=== PATIENT | female | born 1990 | race Caucasian/White ===

== ENCOUNTER 2016-12-17 19:31 | Emergency (ER) | payer BC ==
--- NOTE | 2016-12-17 21:19 | EDM.PDOC ---
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 nt. no dc, no cmt. sscw miscarriage. fu ob - Related Data Allergies Allergy/AdvReac Type Severity Reaction Status Date / Time No Known Allergies Allergy Verified 12/17/16 20:00 Home Meds: Home Meds . [No Known Home Meds] 12/17/16 [History] Course - Vital Signs Last Recorded V/S: Last Vital Signs Temp 36.8 C 12/17/16 23:10 Pulse 92 12/17/16 23:10 Resp 20 12/17/16 23:10 BP 166/92 H 12/17/16 23:10 Pulse Ox 97 12/17/16 23:10 - Orders/Labs/Meds Orders: Active Orders 24 hr Category Date Time Status OB 1st Tri Sgl 1st Gest [US] Stat Exams 12/17/16 20:40 Taken CULTURE URINE [] Stat Lab 12/17/16 22:30 Received Labs: Laboratory Tests 12/17/16 12/17/16 12/17/16 Range/Units 20:52 20:52 20:52 WBC 13.11 H (4.0-11.0) K/uL RBC 4.30 (4.30-5.90) M/uL Hgb 12.1 (12.0-16.0) g/dL Hct 37.0 (36.0-46.0) % MCV 86.0 (80.0-98.0) fL MCH 28.1 (27.0-32.0) pg MCHC 32.7 (31.0-37.0) g/dL RDW Std Deviation 50.4 (28.0-62.0) fl RDW Coeff of Sara 16 H (11.0-15.0) % Plt Count 240 (150-400) K/uL MPV 11.60 (7.40-12.00) fL Neut % (Auto) 61.4 (48.0-80.0) % Lymph % (Auto) 29.4 (16.0-40.0) % [place] % (Auto) 7.6 (0.0-15.0) % Eos % (Auto) 1.2 (0.0-7.0) % Baso % (Auto) 0.4 (0.0-1.5) % Neut # (Auto) 8.0 H (1.4-5.7) K/uL Lymph # (Auto) 3.9 H (0.6-2.4) K/uL [place] # (Auto) 1.0 H (0.0-0.8) K/uL Eos # (Auto) 0.2 (0.0-0.7) K/uL Baso # (Auto) 0.1 (0.0-0.1) K/uL Nucleated RBC % 0.0 /100WBC Nucleated RBCs # 0 K/uL HCG, Quant 898.9 mIU/mL Urine Color Urine Appearance Urine pH (5.0-8.0) Ur Specific [place] (1.001-1.035) Urine Protein (NEGATIVE) mg/dL Urine Glucose (UA) (NEGATIVE) mg/dL Urine Ketones (NEGATIVE) mg/dL Urine Occult Blood (NEGATIVE) Urine Nitrite (NEGATIVE) Urine Bilirubin (NEGATIVE) Urine Urobilinogen (<2.0) EU/dL Ur Leukocyte Esterase (NEGATIVE) Urine RBC (0-2/HPF) Urine WBC (0-5/HPF) Ur Epithelial Cells (NONE-FEW) Urine Bacteria (NEGATIVE) Blood Type O POSITIVE 12/17/16 Range/Units 22:30 WBC (4.0-11.0) K/uL RBC (4.30-5.90) M/uL Hgb (12.0-16.0) g/dL Hct (36.0-46.0) % MCV (80.0-98.0) fL MCH (27.0-32.0) pg MCHC (31.0-37.0) g/dL RDW Std Deviation (28.0-62.0) fl RDW Coeff of Sara (11.0-15.0) % Plt Count (150-400) K/uL MPV (7.40-12.00) fL Neut % (Auto) (48.0-80.0) % Lymph % (Auto) (16.0-40.0) % [place] % (Auto) (0.0-15.0) % Eos % (Auto) (0.0-7.0) % Baso % (Auto) (0.0-1.5) % Neut # (Auto) (1.4-5.7) K/uL Lymph # (Auto) (0.6-2.4) K/uL [place] # (Auto) (0.0-0.8) K/uL Eos # (Auto) (0.0-0.7) K/uL Baso # (Auto) (0.0-0.1) K/uL Nucleated RBC % /100WBC Nucleated RBCs # K/uL HCG, Quant mIU/mL Urine Color YELLOW Urine Appearance CLEAR Urine pH 5.5 (5.0-8.0) Ur Specific [place] 1.025 (1.001-1.035) Urine Protein NEGATIVE (NEGATIVE) mg/dL Urine Glucose (UA) NEGATIVE (NEGATIVE) mg/dL Urine Ketones NEGATIVE (NEGATIVE) mg/dL Urine Occult Blood LARGE H (NEGATIVE) Urine Nitrite NEGATIVE (NEGATIVE) Urine Bilirubin NEGATIVE (NEGATIVE) Urine Urobilinogen 0.2 (<2.0) EU/dL Ur Leukocyte Esterase NEGATIVE (NEGATIVE) Urine RBC 20-25 (0-2/HPF) Urine WBC 1-3 (0-5/HPF) Ur Epithelial Cells OCCASIONAL (NONE-FEW) Urine Bacteria FEW (NEGATIVE) Blood Type Departure - Departure Time of Disposition: 22:53 Disposition: Home, Self-Care 01 Condition: good Clinical Impression: , Threatened miscarriage - Discharge Information Instructions: Threatened Miscarriage, Vaginal Bleeding During , First Trimester, [id number] Referrals: PCP,None [Primary Care Provider] - Mario Taylor MD [Physician] - Forms: ED Department Discharge Additional Instructions: Your findings today are suspicious for miscarriage, as your hcg has decreased to 898. Your ultrasound shows that the is in your uterus, with no signs of ectopic . Remember that your blood type is O+. Follow up with Dr Taylor in 1-2 days for reevaluation and repeat hormone level as needed. Return for severe bleeding, pain, or fevers. - My Orders Last 24 Hours: My Active Orders 12/17/16 20:40 OB 1st Tri Sgl 1st Gest [US] Stat 12/17/16 22:30 CULTURE URINE [] Stat - Assessment/Plan Last 24 Hours: My Active Orders 12/17/16 20:40 OB 1st Tri Sgl 1st Gest [US] Stat 12/17/16 22:30 CULTURE URINE [] Stat <Chaparro Gomez - Last Filed: 12/18/16 11:06> ED HPI GENERAL MEDICAL PROBLEM - General Source of Information: Reports: Patient, Family History Limitations: Reports: No Limitations - History of Present Illness INITIAL COMMENTS - FREE TEXT/NARRATIVE: History of present illness: [26-year-old female comes in complaining of vaginal bleeding. Patient indicates she is by approximate 7 weeks and has had this confirmed by both blood and urine. Patient comes in to be evaluated for first trimester vaginal bleeding ] Review of systems: As per history of present illness and below otherwise all systems reviewed and negative. Past medical history: As per history of present illness and as reviewed below otherwise noncontributory. Surgical history: As per history of present illness and as reviewed below otherwise noncontributory. Social history: No reported history of drug or alcohol abuse. Family history: As per history of present illness and as reviewed below otherwise noncontributory. Physical exam: HEENT: Atraumatic, normocephalic, pupils reactive, negative for conjunctival pallor or scleral icterus, mucous membranes moist, throat clear, neck supple, nontender, trachea midline. Lungs: Clear to auscultation, breath sounds equal bilaterally, chest nontender. Heart: S1S2, regular, negative for clicks, rubs, or JVD. Abdomen: Soft, nondistended, nontender. Negative for masses or hepatosplenomegaly. Negative for costovertebral tenderness. Pelvis: Stable nontender. Genitourinary: Deferred. Rectal: Deferred. Extremities: Atraumatic, negative for cords or calf pain. Neurovascular unremarkable. Neuro: Awake, alert, oriented. Cranial nerves II through XII unremarkable. Cerebellum unremarkable. Motor and sensory unremarkable throughout. Exam nonfocal. Initial labs started as well as pelvic ultrasound Case signed out to Dr. Villalba. At 2225. Diagnostics: [CBC, RH, first trimester ultrasound, UA] Therapeutics: [] Impression: [DX/Impression per Dr Villalba.] Plan: [ Definitive disposition and diagnosis as appropriate pending reevaluation and review of above. Lower Pelvic Pain Score (Numeric/FACES): 5 Past Medical History - Past Health History Medical/Surgical History: Denies Medical/Surgical History Cardiovascular History: Reports: Other (See Below) Other Cardiovascular History: preeclampsia Endocrine/Metabolic History: Reports: Other (See Below) Other Endocrine/Metabolic History: gestational diabetes - Infectious Disease History Infectious Disease History: Reports: Chicken Pox - Past Surgical History Female Surgical History: Reports: Section Social & Family History - Family History Family Medical History: Noncontributory - Tobacco Use Smoking Status *Q: Never Smoker - Recreational Drug Use Recreational Drug Use: No ED ROS GENERAL - Review of Systems Review Of Systems: See Below (See history of present illness) ED EXAM, GENERAL - Physical Exam Exam: See Below (See history of present illness)
[2016-12-17 23:11] VITALS: BP 166/92
--- NOTE | 2016-12-18 11:51 | US ---
EXAM DATE: 12/17/16 PATIENT'S AGE: 26 Patient: JIM CANO Facility: [place], [place] Site . Site : [id number] Study: US OB Pelvis [id number]/11/2017 10:19:43 PM Ordering Physician: Doctor Horvath Final Report: INDICATION: Early . Bleeding. TECHNIQUE: Early obstetrical ultrasound. Transabdominal and endovaginal imaging. The endovaginal study was required to visualize intrauterine , ovaries, adnexal regions and endometrium. Findings: Small intrauterine gestational sac. Yolk sac is present. No pole. No cardiac activity. No free fluid. Corpus luteum right ovary. Left ovary unremarkable. Intact spectral arterial waveforms to both ovaries. No free fluid. IMPRESSION: 1. Early intrauterine with a yolk sac but no pole or cardiac activity. Followup is suggested. Early versus early blighted ovum. 2. No sonographic signs for ectopic . Dictated by Daniel Merritt MD @ Dec 17 2016 10:44PM (Electronic Signature) Report Signed by Proxy. NAA
== END 2016-12-17 23:15 | disposition home or self-care (01) ==
LOC: MW.ED 19:31
DX: O20.0 Threatened abortion (principal); Z98.890 Other specified postprocedural states; Z3A.01 Less than 8 weeks gestation of pregnancy
CPT/HCPCS: 76801; 76801-26; 81001; 84702; 85025; 86900; 86901; 87086; 87088; 87186; 99283; 99284-25

== ENCOUNTER 2017-06-04 20:43 | Emergency (ER) | payer BC ==
[2017-06-04] MEDS ORDERED: Sodium Chloride 0.9% 1,000 ML IV ONE (21:19)
[2017-06-04] MEDS ORDERED: diphenhydrAMINE 50 MG/ML SDV IVPUSH ONE (21:20)
[2017-06-04] MEDS ORDERED: Sodium Chloride 0.9% 2.5 ML Syringe FLUSH PRN (21:20)
[2017-06-04] MEDS ORDERED: Sodium Chloride 0.9% 10 ML Syringe FLUSH PRN (21:20)
[2017-06-04] MEDS ORDERED: LORazepam 0.5 MG Tab PO ONE (21:20)
[2017-06-04] MEDS ORDERED: Morphine 2 MG/ML Syringe IVPUSH ONE (21:21)
--- NOTE | 2017-06-04 21:29 | EDM.PDOC ---
ED HPI GENERAL MEDICAL PROBLEM - General Chief Complaint: Headache Stated Complaint: MIGRAINES Time Seen by Provider: 06/04/17 21:16 Source of Information: Reports: Patient History Limitations: Reports: No Limitations - History of Present Illness INITIAL COMMENTS - FREE TEXT/NARRATIVE: HISTORY AND PHYSICAL: []16-year-old female presenting with headache. Patient has history of migraines. States this is different. History of Present Illness: []She does have nausea , patient has been coughing Review of Systems: As per history of present illness and below otherwise all systems reviewed and negative. Past medical history: As per history of present illness and as reviewed below otherwise noncontributory. Surgical history: As per history of present illness and as reviewed below otherwise noncontributory. Social history: No reported history of drug or alcohol abuse. Family history: As per history of present illness and as reviewed below otherwise noncontributory. Physical exam: Alert and oriented female who is her arm over her eyes. She is photophobic. Answering questions appropriately in full sentences without shortness of breath HEENT: Atraumatic, normocehpalic, pupils reactive, negative for conjunctival pallor or scleral icterus, mucous membranes moist, throat clear, neck supple, nontender, trachea midline. Scleral erythema. Lungs: Clear to auscultation, breath sounds equal bilaterally, chest non tender. Heart: S1S2, regular, negative for clicks, rubs, or JVD. Abdomen: Soft, nondistended, nontender. Negative for masses or hepatossplenmegaly. Negative for costovertebral tenderness. Pelvis: Stable nontender. Genitourinary: Deferred. Rectal: Deferred Extremities: Atraumatic, negative for cords or calf pain. Neurovascular unremarkable. Neuro: Awake, alert, oriented. Cranial nerves II through XII unremarkable. Cerebellum unremarkable. Motor and sensory unremarkable throughout. Exam nonfocal. Diagnostics: [Influenza] Therapeutics: []IV normal saline Benadryl Lorazepam Morphine Impression: [Migraine headache Viral syndrome] Plan: [Discharged to home Tylenol at home every 4 hours as needed for headache Follow-up tomorrow with your primary care provider you may need a neurology follow-up for migraines during ] Definitive disposition and diagnosis as appropriate pending reevaluation and review of above. Onset: Gradual (3days) Duration: Day(s): (3) Location: Reports: Head Right [place] Pain Score (Numeric/FACES): 8 - Related Data Allergies Allergy/AdvReac Type Severity Reaction Status Date / Time sumatriptan [From Imitrex] Allergy Chest Pain Verified 06/04/17 21:11 Home Meds: Home Meds . [No Known Home Meds] 12/17/16 [History] Past Medical History - Past Health History Medical/Surgical History: Denies Medical/Surgical History Cardiovascular History: Reports: Other (See Below) Other Cardiovascular History: preeclampsia Endocrine/Metabolic History: Reports: Other (See Below) Other Endocrine/Metabolic History: gestational diabetes - Infectious Disease History Infectious Disease History: Reports: Chicken Pox - Past Surgical History Female Surgical History: Reports: Section Social & Family History - Family History Family Medical History: Noncontributory - Tobacco Use Smoking Status *Q: Never Smoker - Recreational Drug Use Recreational Drug Use: No ED ROS GENERAL - Review of Systems Review Of Systems: ROS reveals no pertinent complaints other than HPI. - Physical Exam Exam: See Below (see dictation) Course - Vital Signs Last Recorded V/S: Last Vital Signs Temp 36.6 C 06/04/17 21:11 Pulse 90 06/04/17 21:11 Resp 18 06/04/17 21:11 BP 148/92 H 06/04/17 21:11 Pulse Ox 98 06/04/17 21:11 - Orders/Labs/Meds Orders: Active Orders 24 hr Category Date Time Status INFLUENZA A+B AG SCREEN [RM] Stat Lab 06/04/17 21:25 Received Sodium Chloride 0.9% [Normal Saline] 1,000 ml Med 06/04/17 21:19 Active IV STAT Sodium Chloride 0.9% [Saline Flush] Med 06/04/17 21:20 Active 10 ml FLUSH ASDIRECTED PRN Sodium Chloride 0.9% [Saline Flush] Med 06/04/17 21:20 Active 2.5 ml FLUSH ASDIRECTED PRN Saline Lock Insert [OM.PC] Stat Oth 06/04/17 21:19 Ordered Medication Orders Sodium Chloride (Normal Saline) 1,000 mls @ 999 mls/hr IV STAT ONE Stop: 06/04/17 22:19 Last Admin: 06/04/17 21:32 Dose: 999 mls/hr Sodium Chloride (Saline Flush) 10 ml FLUSH ASDIRECTED PRN PRN Reason: Keep Vein Open Last Admin: 06/04/17 21:33 Dose: 10 ml Sodium Chloride (Saline Flush) 2.5 ml FLUSH ASDIRECTED PRN PRN Reason: Keep Vein Open Last Admin: 06/04/17 21:32 Dose: 2.5 ml Meds: Medications Generic Name Dose Route Start Last Admin Trade Name Frehelio PRN Reason Stop Dose Admin Sodium Chloride 1,000 mls @ 999 mls/hr 06/04/17 21:19 06/04/17 21:32 Normal Saline IV 06/04/17 22:19 999 mls/hr STAT ONE Administration Sodium Chloride 10 ml 06/04/17 21:20 06/04/17 21:33 Saline Flush FLUSH 10 ml ASDIRECTED PRN Administration Keep Vein Open Sodium Chloride 2.5 ml 06/04/17 21:20 06/04/17 21:32 Saline Flush FLUSH 2.5 ml ASDIRECTED PRN Administration Keep Vein Open Discontinued Medications Generic Name Dose Route Start Last Admin Trade Name Freq PRN Reason Stop Dose Admin Diphenhydramine HCl 25 mg 06/04/17 21:20 06/04/17 21:32 Benadryl IVPUSH 06/04/17 21:21 25 mg ONETIME ONE Administration Lorazepam 0.5 mg 06/04/17 21:20 06/04/17 21:32 Ativan PO 06/04/17 21:21 0.5 mg ONETIME ONE Administration Morphine Sulfate 1 mg 06/04/17 21:21 06/04/17 21:36 Morphine IVPUSH 06/04/17 21:22 1 mg ONETIME ONE Administration Departure - Departure Time of Disposition: 21:43 Disposition: Home, Self-Care 01 Condition: Good Clinical Impression: Migraine, Viral syndrome - Discharge Information Referrals: Jean-Paul Mccarthy MD [Primary Care Provider] - Forms: ED Department Discharge Additional Instructions: The following information is given to patients seen in the emergency department who are being discharged to home. This information is to outline your options for follow-up care. We provide all patients seen in our emergency department with a follow-up referral. The need for follow-up, as well as the timing and circumstances, are variable depending upon the specifics of your emergency department visit. If you don't have a primary care physician on staff, we will provide you with a referral. We always advise you to contact your personal physician following an emergency department visit to inform them of the circumstance of the visit and for follow-up with them and/or the need for any referrals to a consulting specialist. The emergency department will also refer you to a specialist when appropriate. This referral assures that you have the opportunity for followup care with a specialist. All of these measure are taken in an effort to provide you with optimal care, which includes your followup. Under all circumstances we always encourage you to contact your private physician who remains a resource for coordinating your care. When calling for followup care, please make the office aware that this follow-up is from your recent emergency room visit. If for any reason you are refused follow-up, please contact the [facility] emergency department at and asked to speak to the emergency department charge nurse. 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 You may need neurology consult for her migraines while - My Orders Last 24 Hours: My Active Orders 06/04/17 21:19 Sodium Chloride 0.9% [Normal Saline] 1,000 ml IV STAT Saline Lock Insert [OM.PC] Stat 06/04/17 21:20 Sodium Chloride 0.9% [Saline Flush] 10 ml FLUSH ASDIRECTED PRN Sodium Chloride 0.9% [Saline Flush] 2.5 ml FLUSH ASDIRECTED PRN 06/04/17 21:25 INFLUENZA A+B AG SCREEN [RM] Stat - Assessment/Plan Last 24 Hours: My Active Orders 06/04/17 21:19 Sodium Chloride 0.9% [Normal Saline] 1,000 ml IV STAT Saline Lock Insert [OM.PC] Stat 06/04/17 21:20 Sodium Chloride 0.9% [Saline Flush] 10 ml FLUSH ASDIRECTED PRN Sodium Chloride 0.9% [Saline Flush] 2.5 ml FLUSH ASDIRECTED PRN 06/04/17 21:25 INFLUENZA A+B AG SCREEN [RM] Stat
[2017-06-04 22:15] VITALS: BP 168/84
== END 2017-06-04 22:35 | disposition home or self-care (01) ==
LOC: MW.ED 20:43
DX: G43.909 Migraine, unspecified, not intractable, without status migrainosus (principal); B34.9 Viral infection, unspecified; Z88.8 Allergy status to other drugs, medicaments and biological substances
CPT/HCPCS: 87804; 96361; 96374; 96375; 99283; A9270; J1200; J2270; J7040

== ENCOUNTER 2017-11-01 14:45 | Inpatient (IN) | payer BC ==
[2017-11-01] MEDS ORDERED: Sodium Chloride 0.9% 10 ML Syringe FLUSH PRN (15:31)
[2017-11-01] MEDS ORDERED: Sodium Chloride 0.9% 2.5 ML Syringe FLUSH PRN (15:31)
[2017-11-01] MEDS ORDERED: CEFAZOLIN IV ONE (15:34)
[2017-11-01] MEDS ORDERED: SODIUM CHLORIDE 0.9% IV ONE (15:34)
[2017-11-01] MEDS ORDERED: Lactated Ringers 1,000 ML IV SCH ×2 (15:45→17:30)
[2017-11-01] MEDS ORDERED: Citric Acid/Sodium Citrate Solution 30 ML Cup PO SCH (15:45)
[2017-11-01] MEDS ORDERED: Oxytocin/0.9 % Sodium Chloride 30 UNIT/500 ML BAG IV SCH (15:45)
--- NOTE | 2017-11-01 15:54 | PCM.PREANE ---
Preanesthetic Assessment - Anesthesia/Transfusion/Family Hx Anesthesia History: Prior Anesthesia Reaction (Spinal with light headness) - Review of Systems General: No Symptoms Pulmonary: No Symptoms Cardiovascular: No Symptoms Gastrointestinal: No Symptoms Neurological: No Symptoms Other: Reports: None - Physical Assessment ASA Class: 3E Mental Status: Alert & Oriented x3 Airway Class: Mallampati = 2 Dentition: Reports: Normal Dentition Thyro-Mental Finger Breadths: 3 Mouth Opening Finger Breadths: 3 ROM/Head Extension: Full Lungs: Clear to Auscultation, Normal Respiratory Effort Cardiovascular: Regular Rhythm, Tachycardia - Allergies Allergies/Adverse Reactions: Allergies Allergy/AdvReac Type Severity Reaction Status Date / Time sumatriptan [From Imitrex] Allergy Chest Pain Verified 06/04/17 21:11 - Anesthesia Plan Free Text/Narrative:: Emergency for hypertension, r/o pre-eclampsia - Acknowledgements Anesthesia Type Planned: General Anesthesia, Spinal Pt an Appropriate Candidate for the Planned Anesthesia: Yes Alternatives and Risks of Anesthesia Discussed w Pt/Guardian: Yes Pt/Guardian Understands and Agrees with Anesthesia Plan: Yes PreAnesthesia Questionnaire - Past Health History Medical/Surgical History: Denies Medical/Surgical History HEENT History: Reports: None Cardiovascular History: Reports: Other (See Below) Other Cardiovascular History: preeclampsia Respiratory History: Reports: None Gastrointestinal History: Reports: None Genitourinary History: Reports: None 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: : 4 Para: 2 LMP (Approximate): Musculoskeletal History: Reports: None Neurological History: Reports: None Psychiatric History: Reports: None Endocrine/Metabolic History: Reports: Other (See Below) Other Endocrine/Metabolic History: gestational diabetes Hematologic History: Reports: None Immunologic History: Reports: None Oncologic (Cancer) History: Reports: None Dermatologic History: Reports: None - Infectious Disease History Infectious Disease History: Reports: Chicken Pox - Past Surgical History Female Surgical History: Reports: Section - SUBSTANCE USE Smoking Status *Q: Never Smoker Recreational Drug Use History: No - HOME MEDS Home Medications: Home Meds . [No Known Home Meds] 12/17/16 [History] - CURRENT (IN HOUSE) MEDS Current Meds: Current Medications Citric Acid/Sodium Citrate (Bicitra Solution) 30 ml PO .ONCE SISI Lactated Ringer's (Ringers, Lactated) 1,000 mls @ 500 mls/hr IV .BOLUS SISI Oxytocin/Sodium Chloride (Oxytocin 30 Unit/500 Ml-Ns) 30 unit in 500 mls @ 250 mls/hr IV TITRATE SISI Cefazolin Sodium 3 mg/ Sodium (Chloride) 100 mls @ 133.333 mls/hr IV ONETIME ONE Stop: 11/01/17 16:18 Sodium Chloride (Saline Flush) 10 ml FLUSH ASDIRECTED PRN PRN Reason: Keep Vein Open Sodium Chloride (Saline Flush) 2.5 ml FLUSH ASDIRECTED PRN PRN Reason: Keep Vein Open
[2017-11-01] MEDS ORDERED: Phenylephrine/Normal Saline 100 MCG/ML 10 ML Syringe ONE (15:57)
[2017-11-01] MEDS ORDERED: Ondansetron 4 MG/2 ML SDV ONE (15:57)
[2017-11-01] MEDS ORDERED: Oxytocin 10 Units/1 ML SDV ONE (15:57)
[2017-11-01] MEDS ORDERED: Sodium Chloride 0.9% 20 ML ONE (15:57)
[2017-11-01] MEDS ORDERED: ceFAZolin 1 GM Vial ONE (15:57)
[2017-11-01] MEDS ORDERED: ePHEDrine 50 MG/ML SDV ONE (15:57)
[2017-11-01] MEDS ORDERED: Water For Injection, Sterile 20 ML ONE (15:58)
[2017-11-01] MEDS ORDERED: Morphine PF 1 MG/ML Amp ONE (16:03)
[2017-11-01] MEDS ORDERED: Glycopyrrolate 0.2 MG/ML SDV ONE (16:33)
[2017-11-01] MEDS ORDERED: Octyl 2-Cyanoacrylate 1 Tube ONE (16:58)
[2017-11-01] MEDS ORDERED: Magnesium Sulfate/Water 4 GM in Premix Bag 1 BAG IV ONE (17:18)
[2017-11-01] MEDS ORDERED: Calcium Gluconate 10% 1 GM/10 ML SDV IV PRN (17:18)
[2017-11-01] MEDS ORDERED: Labetalol 100 MG/20 ML MDV IVPUSH PRN (17:18)
[2017-11-01] MEDS ORDERED: Lanolin 100% Cream 7 GM Tube TOP PRN (17:22)
[2017-11-01] MEDS ORDERED: Bisacodyl 10 MG Supp RECTAL PRN (17:22)
[2017-11-01] MEDS ORDERED: Aluminum Hydroxide/Magnesium Hydroxide/Simethicone Susp 30 ML Cup PO PRN (17:22)
[2017-11-01] MEDS ORDERED: Ondansetron 4 MG/2 ML SDV IV PRN (17:22)
[2017-11-01] MEDS ORDERED: Acetaminophen/oxyCODONE 325-5 MG Tab PO PRN (17:22)
[2017-11-01] MEDS ORDERED: diphenhydrAMINE 50 MG/ML SDV IVPUSH PRN ×2 (17:22→17:25)
[2017-11-01] MEDS ORDERED: Nalbuphine 10 MG/1 ML Vial IVPUSH PRN (17:25)
[2017-11-01] MEDS ORDERED: Naloxone 0.4 MG/ML Syringe IVPUSH PRN (17:25)
[2017-11-01] MEDS ORDERED: Magnesium Sulfate/Water 40 GM/1,000 ML BAG IV SCH (17:30)
[2017-11-01] MEDS: Ketorolac 30 MG/ML SDV IVPUSH SCH ×2 (17:40→23:42)
--- NOTE | 2017-11-01 17:43 | PCM.OPNOTE ---
- General Post-Op/Procedure Note Date of Surgery/Procedure: 11/01/17 Operative Procedure(s): Repeat LTCS Findings: Viable female AGPARs 8, 9 weight 2760 gm. Delivery intact placenta with 3V cord Pre Op Diagnosis: 37/1 week IUP. Previous LTCS--desires repeat. Preeclampsia Post-Op Diagnosis: Same Anesthesia Technique: Spinal Primary Surgeon: Georgette Owens Fluid Replacement, Intraop: 2,200 EBL in mLs: 600 Complications: None known Condition: Good Free Text/Narrative:: Dictation [id number]
--- NOTE | 2017-11-01 17:52 | PCM.POSTAN ---
POST ANESTHESIA ASSESSMENT - MENTAL STATUS Mental Status: Alert, Oriented - VITAL SIGNS Pulse Rate: 64 SaO2: 98 Resp Rate: 20 Blood Pressure: 108/64 - RESPIRATORY Respiratory Status: Respiratory Rate WNL, Airway Patent, O2 Saturation Stable - CARDIOVASCULAR CV Status: Pulse Rate WNL, Blood Pressure Stable - GASTROINTESTINAL GI Status: No Symptoms - PAIN Pain Score: 0 - POST OP HYDRATION Hydration Status: Adequate & Stable
--- NOTE | 2017-11-01 21:59 | PCM48HPAN ---
Post Anesthesia Note - EVALUATION WITHIN 48HRS OF ANESTHETIC Vital Signs in Normal Range: Yes Patient Participated in Evaluation: Yes Respiratory Function Stable: Yes Airway Patent: Yes Cardiovascular Function Stable: Yes Hydration Status Stable: Yes Pain Control Satisfactory: Yes Nausea and Vomiting Control Satisfactory: Yes Mental Status Recovered: Yes Pulse Rate: 64 Resp Rate: 16 Blood Pressure: 108/64
[2017-11-01] MEDS: Docusate Sodium 100 MG Cap PO SCH (23:39)
--- NOTE | 2017-11-02 01:11 | OR ---
SURGEON: Georgette Owens M.D. DATE OF PROCEDURE: 11/01/2017 PREOPERATIVE DIAGNOSES: 1. 37-1/7 weeks' intrauterine . 2. Preeclampsia. 3. Previous section, desires repeat. POSTOPERATIVE DIAGNOSES: 1. 37-1/7 weeks' intrauterine . 2. Preeclampsia. 3. Previous section, desires repeat. PROCEDURE: Repeat low transverse section. ANESTHESIA: Spinal. ESTIMATED BLOOD LOSS: 600 mL. FLUIDS: 2200 mL crystalloid. FINDINGS: Viable female. score 8 at one minute, 9 at five minutes. Weight of 2760 g. Delivery of intact placenta, 3-vessel cord. Normal-appearing pelvis. DISPOSITION: The patient to PACU, magnesium recovery. to nursery. PROCEDURE DETAILS: Edelmira is a 27-year-old, G3, P2, at 37-1/7 weeks' gestational age, who has been monitored closely in the last few weeks for developing preeclampsia. She has been in the mild range with blood pressures. She has been having serial labs and 24-hour urine's. 24-hour urine's at times have been elevated with normal labs and blood pressures remained in the 140s over 90s range. When blood pressure became slightly more elevated, but having normal 24-hour urine's, was initiated on oral labetalol and has been monitored for the last 2 weeks. However, today in clinic, she presents with a blood pressure 160/100 while taking oral labetalol. She was sent to Labor and Delivery with serial blood pressures and they are ranging in the 150s to 170s over 100s. Therefore, given the severe range despite antihypertensive therapy, I felt it was best to proceed with delivery. Her labs otherwise are normal. Risks of procedure have been discussed with her, proper consent obtained. The patient was taken to the operating room where she underwent spinal anesthetic, was placed in dorsal supine position with leftward tilt. SCDs to lower extremities, Hale to gravity, was prepped and draped in usual sterile fashion. A time-out was performed. The patient received Ancef prophylactically. Anesthesia was tested, found to be adequate. Previous Pfannenstiel scar was now excised. Subcutaneous tissue was incised down to the level of the rectus fascia, which was incised in midline, lateralized on either side sharply and bluntly. The superior aspect of fascia was tented up, dissected sharply and bluntly away from underlying muscle. In a similar fashion, this was performed with the inferior aspect of the fascia. Rectus muscles were . Peritoneum was entered. Rectus muscles and peritoneum were lateralized bluntly. Uterine position and position were palpated. Self-retaining retractor was gently placed. Uterovesical adhesions were noted, these were gently lysed sharply. A bladder flap was created, mobilized away from lower uterine segment. Low transverse hysterotomy was performed. Uterine cavity was entered bluntly with the scalpel. Hysterotomy was lateralized bluntly, clear fluid was returned. The 's head was flexed, delivered from the pelvis. Fundal pressure was applied. The infant's head was delivered followed by anterior shoulder push, remainder of the body without difficulty. The 's oropharynx and nares were bulb suctioned. was handed off to attending physician, Dr. Salamanca. Cord arterial, cord venous, cord blood samples obtained. The placenta was now delivered. Uterine cavity was cleared of all clot and debris. Hysterotomy was repaired using 0 Vicryl in continuous running locked fashion followed by a re- imbricating layer. Area of oozing in the midline was replicated with 2 figure- of-eight sutures. Hemostasis thereafter evident. Uterus remained firm. Posterior aspect of the uterus inspected, no defects or hematomas were found to be forming. Colonic gutters were cleared of all clot and debris, well irrigated, suction dried. Hysterotomy was inspected, found to be hemostatic. Self-retaining retractor now gently removed. Hysterotomy once again inspected and found to be hemostatic. Rectus muscles and peritoneum were reapproximated using 0 Vicryl in inverted mattress suture technique. Anterior aspect of the muscle and posterior aspect of the fascia were closely inspected. Any areas of oozing were cauterized. The rectus fascia was reapproximated using looped PDS beginning laterally on either side and meeting in the midline. Subcutaneous tissue was well irrigated, suction dried. Any areas of oozing were cauterized. Deep subcutaneous tissues reapproximated using 3-0 plain in continuous running fashion. Edges of the skin were reapproximated using 3-0 Vicryl in subcuticular fashion followed by Dermabond. The sponge, instrument, needle counts were correct x3. The patient has tolerated the procedure well. Her blood pressures have became more normalized with the spinal anesthetic. We will continue to monitor closely and begin magnesium prophylaxis given the severe pressures prior to delivery. BRADLEY / BEBA /[id number]
[2017-11-02] MEDS: Ketorolac 30 MG/ML SDV IVPUSH SCH ×3 (05:31→17:44)
[2017-11-02 07:07] LABS: CHLORIDE,CL 103 mmol/L (98-107); SODIUM,NA 135 mmol/L (136-145)
--- NOTE | 2017-11-02 08:21 | PCM.PNPP ---
<Stephanie Lozada - Last Filed: 11/02/17 08:16> - General Info Date of Service: 11/02/17 Functional Status: Reports: Pain Controlled, Tolerating Diet, Ambulating, Urinating (catheter in place) - Review of Systems General: Denies: Fever, Weakness, Fatigue Pulmonary: Denies: Shortness of Breath, Pleuritic Chest Pain, Cough Cardiovascular: Denies: Chest Pain, Palpitations, Dyspnea on Exertion Gastrointestinal: Denies: Abdominal Pain Genitourinary: Denies: Dysuria - General Info Date of Service: 11/02/17 - Patient Data Vital Signs - Most Recent: Last Vital Signs Temp 36.2 C 11/02/17 06:30 Pulse 93 11/02/17 06:30 Resp 17 11/02/17 06:30 BP 120/64 11/02/17 06:30 Pulse Ox 99 11/02/17 06:30 Weight - Most Recent: 148.778 kg I&O - Last 24 Hours: Intake & Output 11/01/17 11/02/17 11/02/17 22:59 06:59 14:59 Intake Total 4000 1100 Output Total 615 780 Balance 3385 320 Lab Results - Last 24 Hours: Laboratory Results - last 24 hr 11/01/17 11/01/17 11/01/17 Range/Units 00:15 15:42 16:41 WBC (4.0-11.0) K/uL RBC (4.30-5.90) M/uL Hgb (12.0-16.0) g/dL Hct (36.0-46.0) % MCV (80.0-98.0) fL MCH (27.0-32.0) pg MCHC (31.0-37.0) g/dL RDW Std Deviation (28.0-62.0) fl RDW Coeff of Sara (11.0-15.0) % Plt Count (150-400) K/uL MPV (7.40-12.00) fL Nucleated RBC % /100WBC Nucleated RBCs # K/uL Cord ABG pH 7.277 (7.18-7.38) Cord ABG Base Excess -1 H (-10--2) Cord VBG pH 7.356 (7.25-7.45) Cord VBG Base Excess -1 H (-10--2) Sodium (136-145) mmol/L Potassium (3.5-5.1) mmol/L Chloride (98-107) mmol/L Carbon Dioxide (21.0-32.0) mmol/L BUN (7.0-18.0) mg/dL Creatinine (0.6-1.0) mg/dL Est Cr Clr Drug Dosing mL/min Estimated GFR (MDRD) ml/min Glucose (74-106) mg/dL Calcium (8.5-10.1) mg/dL Magnesium 3.4 H (1.5-2.0) mg/dL Total Bilirubin (0.2-1.0) mg/dL AST (15-37) IU/L ALT (14-63) IU/L Alkaline Phosphatase (46-116) U/L Total Protein (6.4-8.2) g/dL Albumin (3.4-5.0) g/dL Globulin (2.0-3.5) g/dL Albumin/Globulin Ratio (1.3-2.8) Blood Type O POSITIVE Antibody Screen NEGATIVE 11/02/17 11/02/17 11/02/17 Range/Units 05:30 05:30 05:30 WBC 15.75 H (4.0-11.0) K/uL RBC 3.95 L (4.30-5.90) M/uL Hgb 11.1 L (12.0-16.0) g/dL Hct 33.6 L (36.0-46.0) % MCV 85.1 (80.0-98.0) fL MCH 28.1 (27.0-32.0) pg MCHC 33.0 (31.0-37.0) g/dL RDW Std Deviation 49.1 (28.0-62.0) fl RDW Coeff of Sara 16 H (11.0-15.0) % Plt Count 219 (150-400) K/uL MPV 11.70 (7.40-12.00) fL Nucleated RBC % 0.0 /100WBC Nucleated RBCs # 0 K/uL Cord ABG pH (7.18-7.38) Cord ABG Base Excess (-10--2) Cord VBG pH (7.25-7.45) Cord VBG Base Excess (-10--2) Sodium 135 L (136-145) mmol/L Potassium 4.0 (3.5-5.1) mmol/L Chloride 103 (98-107) mmol/L Carbon Dioxide 26.0 (21.0-32.0) mmol/L BUN 8 (7.0-18.0) mg/dL Creatinine 0.7 (0.6-1.0) mg/dL Est Cr Clr Drug Dosing 106.70 mL/min Estimated GFR (MDRD) > 60.0 ml/min Glucose 121 H (74-106) mg/dL Calcium 8.2 L (8.5-10.1) mg/dL Magnesium 3.9 H (1.5-2.0) mg/dL Total Bilirubin 0.2 (0.2-1.0) mg/dL AST 16 (15-37) IU/L ALT 13 L (14-63) IU/L Alkaline Phosphatase 243 H (46-116) U/L Total Protein 5.6 L (6.4-8.2) g/dL Albumin 2.0 L (3.4-5.0) g/dL Globulin 3.6 H (2.0-3.5) g/dL Albumin/Globulin Ratio 0.6 L (1.3-2.8) Blood Type Antibody Screen Med Orders - Current: Current Medications Al Hydroxide/Mg Hydroxide (Mag-Al Plus) 30 ml PO Q8H PRN PRN Reason: Heartburn Bisacodyl (Dulcolax) 10 mg RECTAL .ONCE PRN PRN Reason: Constipation Calcium Gluconate (Calcium Gluconate) 1 gm IV ASDIRECTED PRN PRN Reason: respiratory distress Citric Acid/Sodium Citrate (Bicitra Solution) 30 ml PO .ONCE SISI Diphenhydramine HCl (Benadryl) 25 mg IVPUSH Q6H PRN PRN Reason: Itching or Nausea Diphenhydramine HCl (Benadryl) 25 mg IVPUSH Q4H PRN PRN Reason: Itching Stop: 11/02/17 17:26 Docusate Sodium (Colace) 100 mg PO BID SISI Last Admin: 11/01/17 23:39 Dose: Not Given Emollient Ointment (Lansinoh Hpa) 0 gm TOP ASDIRECTED PRN PRN Reason: Sore Nipples Lactated Ringer's (Ringers, Lactated) 1,000 mls @ 500 mls/hr IV .BOLUS SISI Oxytocin/Sodium Chloride (Oxytocin 30 Unit/500 Ml-Ns) 30 unit in 500 mls @ 250 mls/hr IV TITRATE SISI Magnesium Sulfate (Magnesium Sulfate 40 Gm In Water 1000 Ml) 40 gm in 1,000 mls @ 50 mls/hr IV ASDIRECTED SISI; Protocol Last Admin: 11/01/17 19:35 Dose: 2 gm/hr, 50 mls/hr Lactated Ringer's (Ringers, Lactated) 1,000 mls @ 125 mls/hr IV ASDIRECTED [facility] Last Admin: 11/01/17 18:57 Dose: 30 mls/hr Ibuprofen (Motrin) 800 mg PO Q8H PRN PRN Reason: mild pain or fever Ketorolac Tromethamine (Toradol) 30 mg IVPUSH Q6H SISI Stop: 11/02/17 17:31 Last Admin: 11/02/17 05:31 Dose: 30 mg Labetalol HCl (Normodyne) 20 mg IVPUSH Q10M PRN; Protocol PRN Reason: Hypertension Nalbuphine HCl (Nubain) 5 mg IVPUSH Q3H PRN PRN Reason: Pruritis Stop: 11/02/17 17:34 Naloxone HCl (Narcan) 0.1 mg IVPUSH ONETIME PRN PRN Reason: Respiratory Depression Stop: 11/02/17 17:26 Ondansetron HCl (Zofran) 4 mg IV Q4H PRN PRN Reason: Nausea/Vomiting Oxycodone/Acetaminophen (Percocet 325-5 Mg) 1 tab PO Q4H PRN PRN Reason: Pain (moderate 4-6) Oxycodone/Acetaminophen (Percocet 325-5 Mg) 2 tab PO Q4H PRN PRN Reason: Pain (moderate 4-6) Simethicone (Simethicone) 80 mg PO Q4H PRN PRN Reason: Gas Sodium Chloride (Saline Flush) 10 ml FLUSH ASDIRECTED PRN PRN Reason: Keep Vein Open Sodium Chloride (Saline Flush) 2.5 ml FLUSH ASDIRECTED PRN PRN Reason: Keep Vein Open Discontinued Medications Cefazolin Sodium (Ancef) Confirm Administered Dose 3 gm .ROUTE .STK-MED ONE Stop: 11/01/17 15:58 Ephedrine Sulfate (Ephedrine Sulfate) Confirm Administered Dose 50 mg .ROUTE .STK-MED ONE Stop: 11/01/17 15:58 Glycopyrrolate (Robinul) Confirm Administered Dose 0.2 mg .ROUTE .STK-MED ONE Stop: 11/01/17 16:34 Cefazolin Sodium 3 mg/ Sodium (Chloride) 100 mls @ 133.333 mls/hr IV ONETIME ONE Stop: 11/01/17 16:18 Last Admin: 11/02/17 00:25 Dose: Not Given Sodium Chloride (Normal Saline) Confirm Administered Dose 20 mls @ as directed .ROUTE .STK-MED ONE Stop: 11/01/17 15:58 Sterile Water (Sterile Water For Injection) Confirm Administered Dose 20 mls @ as directed .ROUTE .STK-MED ONE Stop: 11/01/17 15:59 Magnesium Sulfate 4 gm/ Premix 100 mls @ 300 mls/hr IV .BOLUS ONE Stop: 11/01/17 17:37 Last Admin: 11/01/17 18:47 Dose: 400 mls/hr Morphine Sulfate (Duramorph Pf) Confirm Administered Dose 1 mg .ROUTE .STK-MED ONE Stop: 11/01/17 16:04 Octyl Cyanoacrylate (Dermabond Advance) Confirm Administered Dose 2 applic .ROUTE .STK-MED ONE Stop: 11/01/17 16:59 Ondansetron HCl (Zofran) Confirm Administered Dose 4 mg .ROUTE .STK-MED ONE Stop: 11/01/17 15:58 Oxytocin (Pitocin) Confirm Administered Dose 20 unit .ROUTE .STK-MED ONE Stop: 11/01/17 15:58 Phenylephrine HCl (Phenylephrine In Ns 100 Mcg/Ml) Confirm Administered Dose 1 mg .ROUTE .STK-MED ONE Stop: 11/01/17 15:58 - Interaction Infant Disposition, : in Room with Family Infant Feeding: Attempted ; Nursed Fair/Poor Support Person: Significant Other - Recovery Exam Fundal Tone: Firm Fundal Level: 2 Fingerbreadths Below Umbilicus Fundal Placement: Midline Lochia Amount: Small, Moderate Lochia Color: Rubra/Red Perineum Description: Intact, Minimal Bruising/Swelling Bladder Status: Indwelling Catheter in Place Urinary Elimination: Indwelling Catheter - Exam General: Alert, Oriented Neck: Supple Lungs: Clear to Auscultation, Normal Respiratory Effort Cardiovascular: Regular Rate, Regular Rhythm GI/Abdominal Exam: Normal Bowel Sounds, No Distention Extremities: Normal Inspection, Normal Capillary Refill, Pedal Edema (trace) Skin: Warm, Dry, Intact - Problem List & Annotations (1) delivery delivered SNOMED Code(s): 569069300 Code(s): O82 - ENCOUNTER FOR DELIVERY WITHOUT INDICATION Status: Acute Current Visit: Yes - Problem List Review Problem List Initiated/Reviewed/Updated: Yes - Assessment Assessment:: POD #1 s/p RLTCS for preeclampsia. BPs have stabilized. PIH labs are WNL. Minimal pain and lochia. - Plan Plan:: Continue routine post-op cares. Aim for discharge home tomorrow. <Georgette Owens R - Last Filed: 11/02/17 08:44> - Patient Data Vital Signs - Most Recent: Last Vital Signs Temp 36.2 C 11/02/17 06:30 Pulse 93 11/02/17 06:30 Resp 17 11/02/17 06:30 BP 120/64 11/02/17 06:30 Pulse Ox 99 11/02/17 06:30 I&O - Last 24 Hours: Intake & Output 11/01/17 11/02/17 11/02/17 22:59 06:59 14:59 Intake Total 4000 1100 Output Total 615 780 Balance 3385 320 Lab Results - Last 24 Hours: Laboratory Results - last 24 hr 11/01/17 11/01/17 11/01/17 Range/Units 00:15 15:42 16:41 WBC (4.0-11.0) K/uL RBC (4.30-5.90) M/uL Hgb (12.0-16.0) g/dL Hct (36.0-46.0) % MCV (80.0-98.0) fL MCH (27.0-32.0) pg MCHC (31.0-37.0) g/dL RDW Std Deviation (28.0-62.0) fl RDW Coeff of Sara (11.0-15.0) % Plt Count (150-400) K/uL MPV (7.40-12.00) fL Nucleated RBC % /100WBC Nucleated RBCs # K/uL Cord ABG pH 7.277 (7.18-7.38) Cord ABG Base Excess -1 H (-10--2) Cord VBG pH 7.356 (7.25-7.45) Cord VBG Base Excess -1 H (-10--2) Sodium (136-145) mmol/L Potassium (3.5-5.1) mmol/L Chloride (98-107) mmol/L Carbon Dioxide (21.0-32.0) mmol/L BUN (7.0-18.0) mg/dL Creatinine (0.6-1.0) mg/dL Est Cr Clr Drug Dosing mL/min Estimated GFR (MDRD) ml/min Glucose (74-106) mg/dL Calcium (8.5-10.1) mg/dL Magnesium 3.4 H (1.5-2.0) mg/dL Total Bilirubin (0.2-1.0) mg/dL AST (15-37) IU/L ALT (14-63) IU/L Alkaline Phosphatase (46-116) U/L Total Protein (6.4-8.2) g/dL Albumin (3.4-5.0) g/dL Globulin (2.0-3.5) g/dL Albumin/Globulin Ratio (1.3-2.8) Blood Type O POSITIVE Antibody Screen NEGATIVE 11/02/17 11/02/17 11/02/17 Range/Units 05:30 05:30 05:30 WBC 15.75 H (4.0-11.0) K/uL RBC 3.95 L (4.30-5.90) M/uL Hgb 11.1 L (12.0-16.0) g/dL Hct 33.6 L (36.0-46.0) % MCV 85.1 (80.0-98.0) fL MCH 28.1 (27.0-32.0) pg MCHC 33.0 (31.0-37.0) g/dL RDW Std Deviation 49.1 (28.0-62.0) fl RDW Coeff of Sara 16 H (11.0-15.0) % Plt Count 219 (150-400) K/uL MPV 11.70 (7.40-12.00) fL Nucleated RBC % 0.0 /100WBC Nucleated RBCs # 0 K/uL Cord ABG pH (7.18-7.38) Cord ABG Base Excess (-10--2) Cord VBG pH (7.25-7.45) Cord VBG Base Excess (-10--2) Sodium 135 L (136-145) mmol/L Potassium 4.0 (3.5-5.1) mmol/L Chloride 103 (98-107) mmol/L Carbon Dioxide 26.0 (21.0-32.0) mmol/L BUN 8 (7.0-18.0) mg/dL Creatinine 0.7 (0.6-1.0) mg/dL Est Cr Clr Drug Dosing 106.70 mL/min Estimated GFR (MDRD) > 60.0 ml/min Glucose 121 H (74-106) mg/dL Calcium 8.2 L (8.5-10.1) mg/dL Magnesium 3.9 H (1.5-2.0) mg/dL Total Bilirubin 0.2 (0.2-1.0) mg/dL AST 16 (15-37) IU/L ALT 13 L (14-63) IU/L Alkaline Phosphatase 243 H (46-116) U/L Total Protein 5.6 L (6.4-8.2) g/dL Albumin 2.0 L (3.4-5.0) g/dL Globulin 3.6 H (2.0-3.5) g/dL Albumin/Globulin Ratio 0.6 L (1.3-2.8) Blood Type Antibody Screen Med Orders - Current: Current Medications Al Hydroxide/Mg Hydroxide (Mag-Al Plus) 30 ml PO Q8H PRN PRN Reason: Heartburn Bisacodyl (Dulcolax) 10 mg RECTAL .ONCE PRN PRN Reason: Constipation Calcium Gluconate (Calcium Gluconate) 1 gm IV ASDIRECTED PRN PRN Reason: respiratory distress Citric Acid/Sodium Citrate (Bicitra Solution) 30 ml PO .ONCE SISI Diphenhydramine HCl (Benadryl) 25 mg IVPUSH Q6H PRN PRN Reason: Itching or Nausea Diphenhydramine HCl (Benadryl) 25 mg IVPUSH Q4H PRN PRN Reason: Itching Stop: 11/02/17 17:26 Docusate Sodium (Colace) 100 mg PO BID [facility] Last Admin: 11/01/17 23:39 Dose: Not Given Emollient Ointment (Lansinoh Hpa) 0 gm TOP ASDIRECTED PRN PRN Reason: Sore Nipples Lactated Ringer's (Ringers, Lactated) 1,000 mls @ 500 mls/hr IV .BOLUS [facility] Oxytocin/Sodium Chloride (Oxytocin 30 Unit/500 Ml-Ns) 30 unit in 500 mls @ 250 mls/hr IV TITRATE [facility] Magnesium Sulfate (Magnesium Sulfate 40 Gm In Water 1000 Ml) 40 gm in 1,000 mls @ 50 mls/hr IV ASDIRECTED [facility]; Protocol Last Admin: 11/01/17 19:35 Dose: 2 gm/hr, 50 mls/hr Lactated Ringer's (Ringers, Lactated) 1,000 mls @ 125 mls/hr IV ASDIRECTED [facility] Last Admin: 11/01/17 18:57 Dose: 30 mls/hr Ibuprofen (Motrin) 800 mg PO Q8H PRN PRN Reason: mild pain or fever Ketorolac Tromethamine (Toradol) 30 mg IVPUSH Q6H [facility] Stop: 11/02/17 17:31 Last Admin: 11/02/17 05:31 Dose: 30 mg Labetalol HCl (Normodyne) 20 mg IVPUSH Q10M PRN; Protocol PRN Reason: Hypertension Nalbuphine HCl (Nubain) 5 mg IVPUSH Q3H PRN PRN Reason: Pruritis Stop: 11/02/17 17:34 Naloxone HCl (Narcan) 0.1 mg IVPUSH ONETIME PRN PRN Reason: Respiratory Depression Stop: 11/02/17 17:26 Ondansetron HCl (Zofran) 4 mg IV Q4H PRN PRN Reason: Nausea/Vomiting Oxycodone/Acetaminophen (Percocet 325-5 Mg) 1 tab PO Q4H PRN PRN Reason: Pain (moderate 4-6) Oxycodone/Acetaminophen (Percocet 325-5 Mg) 2 tab PO Q4H PRN PRN Reason: Pain (moderate 4-6) Simethicone (Simethicone) 80 mg PO Q4H PRN PRN Reason: Gas Sodium Chloride (Saline Flush) 10 ml FLUSH ASDIRECTED PRN PRN Reason: Keep Vein Open Sodium Chloride (Saline Flush) 2.5 ml FLUSH ASDIRECTED PRN PRN Reason: Keep Vein Open Discontinued Medications Cefazolin Sodium (Ancef) Confirm Administered Dose 3 gm .ROUTE .STK-MED ONE Stop: 11/01/17 15:58 Ephedrine Sulfate (Ephedrine Sulfate) Confirm Administered Dose 50 mg .ROUTE .STK-MED ONE Stop: 11/01/17 15:58 Glycopyrrolate (Robinul) Confirm Administered Dose 0.2 mg .ROUTE .STK-MED ONE Stop: 11/01/17 16:34 Cefazolin Sodium 3 mg/ Sodium (Chloride) 100 mls @ 133.333 mls/hr IV ONETIME ONE Stop: 11/01/17 16:18 Last Admin: 11/02/17 00:25 Dose: Not Given Sodium Chloride (Normal Saline) Confirm Administered Dose 20 mls @ as directed .ROUTE .STK-MED ONE Stop: 11/01/17 15:58 Sterile Water (Sterile Water For Injection) Confirm Administered Dose 20 mls @ as directed .ROUTE .STK-MED ONE Stop: 11/01/17 15:59 Magnesium Sulfate 4 gm/ Premix 100 mls @ 300 mls/hr IV .BOLUS ONE Stop: 11/01/17 17:37 Last Admin: 11/01/17 18:47 Dose: 400 mls/hr Morphine Sulfate (Duramorph Pf) Confirm Administered Dose 1 mg .ROUTE .STK-MED ONE Stop: 11/01/17 16:04 Octyl Cyanoacrylate (Dermabond Advance) Confirm Administered Dose 2 applic .ROUTE .STK-MED ONE Stop: 11/01/17 16:59 Ondansetron HCl (Zofran) Confirm Administered Dose 4 mg .ROUTE .STK-MED ONE Stop: 11/01/17 15:58 Oxytocin (Pitocin) Confirm Administered Dose 20 unit .ROUTE .STK-MED ONE Stop: 11/01/17 15:58 Phenylephrine HCl (Phenylephrine In Ns 100 Mcg/Ml) Confirm Administered Dose 1 mg .ROUTE .STK-MED ONE Stop: 11/01/17 15:58 - My Orders Last 24 Hours: My Active Orders 11/01/17 15:31 Patient Status [ADT] Routine Procedure Site Prep Instruct [RC] ASDIRECTED Up ad Sendy [RC] ASDIRECTED Verify Patient Consent Obtain [RC] ASDIRECTED Sodium Chloride 0.9% [Saline Flush] 10 ml FLUSH ASDIRECTED PRN Sodium Chloride 0.9% [Saline Flush] 2.5 ml FLUSH ASDIRECTED PRN Peripheral IV Insertion Adult [OM.PC] Routine Schedule Procedure [COMM] Per Unit Routine Resuscitation Status Routine 11/01/17 15:33 Notify Provider Vital Signs [RC] PRN 11/01/17 15:45 Citric Acid/Sodium Citrate [Bicitra Solution] 30 ml PO .ONCE Lactated Ringers [Ringers, Lactated] 1,000 ml IV .BOLUS Oxytocin/0.9 % Sodium Chloride [Oxytocin 30 Unit/500 ML-NS] 30 unit in 500 ml IV TITRATE 11/01/17 17:18 Patient Status [ADT] Routine Bedrest [RC] ASDIRECTED Communication Order [RC] PRN Equipment to Bedside [RC] PRN Height and Weight [RC] DAILY Notify Provider Status Change [RC] ASDIRECTED Notify Provider [RC] PRN Calcium Gluconate 1 gm IV ASDIRECTED PRN Labetalol [Normodyne] 20 mg IVPUSH Q10M PRN Electronic Heart Tones Ext w TOCO [WOMSER] Per Unit Routine Peripheral IV Insertion Adult [OM.PC] Routine 11/01/17 17:19 Seizure Precautions [OM.PC] Per Unit Routine 11/01/17 17:22 Ambulate [RC] PER UNIT ROUTINE Communication Order [RC] PER UNIT ROUTINE May Shower [RC] ASDIRECTED Notify Provider Intake and Out [RC] ASDIRECTED Notify Provider Vital Signs [RC] ASDIRECTED RT Incentive Spirometry [RC] Q2HWA Acetaminophen/oxyCODONE [Percocet 325-5 MG] 1 tab PO Q4H PRN Acetaminophen/oxyCODONE [Percocet 325-5 MG] 2 tab PO Q4H PRN Alum Hydrox/Mag Hydrox/Simeth [Mag-Al Plus] 30 ml PO Q8H PRN Bisacodyl [Dulcolax] 10 mg RECTAL .ONCE PRN Ibuprofen [Motrin] 800 mg PO Q8H PRN Lanolin [Lansinoh HPA] See Dose Instructions TOP ASDIRECTED PRN Ondansetron [Zofran] 4 mg IV Q4H PRN Simethicone 80 mg PO Q4H PRN diphenhydrAMINE [Benadryl] 25 mg IVPUSH Q6H PRN Abdominal Binder [OM.PC] Routine Assess Lochia [WOMSER] Per Unit Routine Assess Uterine Involution [WOMSER] Per Unit Routine Breast Pump [WOMSER] Per Unit Routine Heat Therapy [OM.PC] Routine Ice Therapy [OM.PC] Routine Peripheral IV Discontinue [OM.PC] Routine Sequential Compression Device [OM.PC] Per Unit Routine 11/01/17 17:30 Ketorolac [Toradol] 30 mg IVPUSH Q6H Lactated Ringers [Ringers, Lactated] 1,000 ml IV ASDIRECTED Magnesium Sulfate/Water [Magnesium Sulfate 40 GM in Water 1000 ML] 40 gm in 1, 000 ml IV ASDIRECTED Deep Tendon Reflexes [WOMSER] Q1H 11/01/17 18:30 Deep Tendon Reflexes [WOMSER] Q1H 11/01/17 19:30 Deep Tendon Reflexes [WOMSER] Q1H 11/01/17 20:30 Deep Tendon Reflexes [WOMSER] Q1H 11/01/17 21:00 Docusate Sodium [Colace] 100 mg PO BID 11/01/17 21:30 Deep Tendon Reflexes [WOMSER] Q1H 11/01/17 22:30 Deep Tendon Reflexes [WOMSER] Q1H 11/01/17 23:30 Deep Tendon Reflexes [WOMSER] Q1H 11/01/17 Dinner Regular Diet [DIET] 11/02/17 00:30 Deep Tendon Reflexes [WOMSER] Q1H 11/02/17 01:30 Deep Tendon Reflexes [WOMSER] Q1 11/02/17 02:30 Deep Tendon Reflexes [WOMSER] Q1H 11/02/17 03:30 Deep Tendon Reflexes [WOMSER] Q1H 11/02/17 04:30 Deep Tendon Reflexes [WOMSER] Q1 11/02/17 05:30 Deep Tendon Reflexes [WOMSER] Q1H 11/02/17 06:30 Deep Tendon Reflexes [WOMSER] Q1H 11/02/17 07:30 Deep Tendon Reflexes [WOMSER] Q1H 11/02/17 08:30 Deep Tendon Reflexes [WOMSER] Q1H 11/02/17 09:30 Deep Tendon Reflexes [WOMSER] Q111/02/17 10:30 Deep Tendon Reflexes [WOMSER] 11/02/17 11:30 MAGNESIUM [CHEM] Routine Deep Tendon Reflexes [WOMSER] 11/02/17 12:30 Deep Tendon Reflexes [WOMSER] 11/02/17 13:30 Deep Tendon Reflexes [WOMSER] 11/02/17 14:30 Deep Tendon Reflexes [WOMSER] 11/02/17 15:30 Deep Tendon Reflexes [WOMSER] 11/02/17 16:30 Deep Tendon Reflexes [WOMSER] 11/02/17 17:30 MAGNESIUM [CHEM] Routine - Plan Plan:: Patient is seen/examined--blood pressures normalizing nicely. However, just beginning to diurese the past 3 hours. Continue magnesium prophylaxis for now. Discussed with patient will not discharge tomorrow with the preeclampsia, the earliest to consider discharge would be Sunday and only if BPs remain stable and feeling well otherwise. She voices her understanding. Still holding oral labetalol as BPs have remained in normal range. Continue postoperative cares. Labs are stable.
[2017-11-02] MEDS: Docusate Sodium 100 MG Cap PO SCH ×2 (09:32→21:46)
[2017-11-02] MEDS: Acetaminophen/oxyCODONE 325-5 MG Tab PO PRN (19:25)
[2017-11-02] MEDS: Simethicone 80 MG Tab.Chew PO PRN (21:55)
[2017-11-03] MEDS: Acetaminophen/oxyCODONE 325-5 MG Tab PO PRN ×7 (00:22→22:49)
[2017-11-03] MEDS: Ibuprofen 800 MG Tab PO PRN ×4 (00:29→23:40)
--- NOTE | 2017-11-03 06:51 | PCM.PNPP ---
- General Info Date of Service: 11/03/17 Functional Status: Reports: Pain Controlled, Tolerating Diet, Ambulating, Urinating - Review of Systems General: Denies: Fever Pulmonary: Denies: Shortness of Breath Cardiovascular: Denies: Chest Pain, Palpitations, Lightheadedness Gastrointestinal: Reports: Flatus. Denies: Nausea Genitourinary: Denies: Flank Pain Skin: Reports: No Symptoms Neurological: Denies: Dizziness, Headache Psychiatric: Reports: No Symptoms - General Info Date of Service: 11/03/17 - Patient Data Vital Signs - Most Recent: Last Vital Signs Temp 36.5 C 11/03/17 04:00 Pulse 91 11/03/17 04:00 Resp 18 11/03/17 04:00 BP 119/74 11/03/17 04:00 Pulse Ox 95 11/03/17 04:00 Weight - Most Recent: 148.778 kg I&O - Last 24 Hours: Intake & Output 11/02/17 11/02/17 11/03/17 14:59 22:59 06:59 Output Total 350 900 Balance -350 -900 Lab Results - Last 24 Hours: Laboratory Results - last 24 hr 11/02/17 11/02/17 11/02/17 Range/Units 05:30 05:30 12:05 Sodium 135 L (136-145) mmol/L Potassium 4.0 (3.5-5.1) mmol/L Chloride 103 (98-107) mmol/L Carbon Dioxide 26.0 (21.0-32.0) mmol/L BUN 8 (7.0-18.0) mg/dL Creatinine 0.7 (0.6-1.0) mg/dL Est Cr Clr Drug Dosing 106.70 mL/min Estimated GFR (MDRD) > 60.0 ml/min Glucose 121 H (74-106) mg/dL Calcium 8.2 L (8.5-10.1) mg/dL Magnesium 3.9 H 4.1 H (1.5-2.0) mg/dL Total Bilirubin 0.2 (0.2-1.0) mg/dL AST 16 (15-37) IU/L ALT 13 L (14-63) IU/L Alkaline Phosphatase 243 H (46-116) U/L Total Protein 5.6 L (6.4-8.2) g/dL Albumin 2.0 L (3.4-5.0) g/dL Globulin 3.6 H (2.0-3.5) g/dL Albumin/Globulin Ratio 0.6 L (1.3-2.8) Med Orders - Current: Current Medications Al Hydroxide/Mg Hydroxide (Mag-Al Plus) 30 ml PO Q8H PRN PRN Reason: Heartburn Bisacodyl (Dulcolax) 10 mg RECTAL .ONCE PRN PRN Reason: Constipation Calcium Gluconate (Calcium Gluconate) 1 gm IV ASDIRECTED PRN PRN Reason: respiratory distress Citric Acid/Sodium Citrate (Bicitra Solution) 30 ml PO .ONCE SISI Diphenhydramine HCl (Benadryl) 25 mg IVPUSH Q6H PRN PRN Reason: Itching or Nausea Docusate Sodium (Colace) 100 mg PO BID [facility] Last Admin: 11/02/17 21:46 Dose: 100 mg Emollient Ointment (Lansinoh Hpa) 0 gm TOP ASDIRECTED PRN PRN Reason: Sore Nipples Last Admin: 11/02/17 21:54 Dose: 1 applicful Lactated Ringer's (Ringers, Lactated) 1,000 mls @ 500 mls/hr IV .BOLUS SISI Oxytocin/Sodium Chloride (Oxytocin 30 Unit/500 Ml-Ns) 30 unit in 500 mls @ 250 mls/hr IV TITRATE SISI Magnesium Sulfate (Magnesium Sulfate 40 Gm In Water 1000 Ml) 40 gm in 1,000 mls @ 50 mls/hr IV ASDIRECTED SISI; Protocol Last Admin: 11/01/17 19:35 Dose: 2 gm/hr, 50 mls/hr Lactated Ringer's (Ringers, Lactated) 1,000 mls @ 125 mls/hr IV ASDIRECTED SISI Last Admin: 11/01/17 18:57 Dose: 30 mls/hr Ibuprofen (Motrin) 800 mg PO Q8H PRN PRN Reason: mild pain or fever Last Admin: 11/03/17 00:29 Dose: 800 mg Labetalol HCl (Normodyne) 20 mg IVPUSH Q10M PRN; Protocol PRN Reason: Hypertension Ondansetron HCl (Zofran) 4 mg IV Q4H PRN PRN Reason: Nausea/Vomiting Oxycodone/Acetaminophen (Percocet 325-5 Mg) 1 tab PO Q4H PRN PRN Reason: Pain (moderate 4-6) Oxycodone/Acetaminophen (Percocet 325-5 Mg) 2 tab PO Q4H PRN PRN Reason: Pain (moderate 4-6) Last Admin: 11/03/17 04:05 Dose: 2 tab Simethicone (Simethicone) 80 mg PO Q4H PRN PRN Reason: Gas Last Admin: 11/02/17 21:55 Dose: 80 mg Sodium Chloride (Saline Flush) 10 ml FLUSH ASDIRECTED PRN PRN Reason: Keep Vein Open Sodium Chloride (Saline Flush) 2.5 ml FLUSH ASDIRECTED PRN PRN Reason: Keep Vein Open Discontinued Medications Cefazolin Sodium (Ancef) Confirm Administered Dose 3 gm .ROUTE .STK-MED ONE Stop: 11/01/17 15:58 Diphenhydramine HCl (Benadryl) 25 mg IVPUSH Q4H PRN PRN Reason: Itching Stop: 11/02/17 17:26 Ephedrine Sulfate (Ephedrine Sulfate) Confirm Administered Dose 50 mg .ROUTE .STK-MED ONE Stop: 11/01/17 15:58 Glycopyrrolate (Robinul) Confirm Administered Dose 0.2 mg .ROUTE .STK-MED ONE Stop: 11/01/17 16:34 Cefazolin Sodium 3 mg/ Sodium (Chloride) 100 mls @ 133.333 mls/hr IV ONETIME ONE Stop: 11/01/17 16:18 Last Admin: 11/02/17 00:25 Dose: Not Given Sodium Chloride (Normal Saline) Confirm Administered Dose 20 mls @ as directed .ROUTE .STK-MED ONE Stop: 11/01/17 15:58 Sterile Water (Sterile Water For Injection) Confirm Administered Dose 20 mls @ as directed .ROUTE .STK-MED ONE Stop: 11/01/17 15:59 Magnesium Sulfate 4 gm/ Premix 100 mls @ 300 mls/hr IV .BOLUS ONE Stop: 11/01/17 17:37 Last Admin: 11/01/17 18:47 Dose: 400 mls/hr Ketorolac Tromethamine (Toradol) 30 mg IVPUSH Q6H SISI Stop: 11/02/17 17:31 Last Admin: 11/02/17 17:44 Dose: 30 mg Morphine Sulfate (Duramorph Pf) Confirm Administered Dose 1 mg .ROUTE .STK-MED ONE Stop: 11/01/17 16:04 Nalbuphine HCl (Nubain) 5 mg IVPUSH Q3H PRN PRN Reason: Pruritis Stop: 11/02/17 17:34 Naloxone HCl (Narcan) 0.1 mg IVPUSH ONETIME PRN PRN Reason: Respiratory Depression Stop: 11/02/17 17:26 Octyl Cyanoacrylate (Dermabond Advance) Confirm Administered Dose 2 applic .ROUTE .STK-MED ONE Stop: 11/01/17 16:59 Ondansetron HCl (Zofran) Confirm Administered Dose 4 mg .ROUTE .STK-MED ONE Stop: 11/01/17 15:58 Oxytocin (Pitocin) Confirm Administered Dose 20 unit .ROUTE .STK-MED ONE Stop: 11/01/17 15:58 Phenylephrine HCl (Phenylephrine In Ns 100 Mcg/Ml) Confirm Administered Dose 1 mg .ROUTE .STK-MED ONE Stop: 11/01/17 15:58 - Interaction Disposition, : in Room with Family Feeding: Attempted ; Nursed Fair/Poor Support Person: Significant Other - Recovery Exam Fundal Tone: Firm Fundal Level: 1 Fingerbreadths Below Umbilicus Fundal Placement: Midline Lochia Amount: Scant Lochia Color: Rubra/Red Perineum Description: Intact, Minimal Bruising/Swelling Episiotomy/Laceration: None Bladder Status: Voiding Urinary Elimination: Voided - Exam General: Alert, Oriented Lungs: Normal Respiratory Effort Cardiovascular: Regular Rate, Regular Rhythm GI/Abdominal Exam: Normal Bowel Sounds, Soft, Tender (near incision, appropriate postoperative discomfort). No: Guarding Extremities: Pedal Edema (1+). No: Yovany's Sign Skin: Warm, Dry, Intact Wound/Incisions: Healing Well, No Drainage. No: Erythema Psy/Mental Status: Alert - Problem List & Annotations (1) delivery delivered SNOMED Code(s): 428305936 Code(s): O82 - ENCOUNTER FOR DELIVERY WITHOUT INDICATION Status: Acute Current Visit: Yes (2) Preeclampsia SNOMED Code(s): 640235525 Code(s): O14.90 - UNSPECIFIED PRE-ECLAMPSIA, UNSPECIFIED TRIMESTER Status: Acute Current Visit: Yes - Problem List Review Problem List Initiated/Reviewed/Updated: Yes - My Orders Last 24 Hours: My Active Orders 11/02/17 06:30 Deep Tendon Reflexes [WOMSER] Q1H 11/02/17 07:30 Deep Tendon Reflexes [WOMSER] Q1H 11/02/17 08:30 Deep Tendon Reflexes [WOMSER] Q1H 11/02/17 09:30 Deep Tendon Reflexes [WOMSER] Q1H 11/02/17 10:30 Deep Tendon Reflexes [WOMSER] Q1H 11/02/17 11:30 Deep Tendon Reflexes [WOMSER] Q1H 11/02/17 12:30 Deep Tendon Reflexes [WOMSER] Q1H 11/02/17 13:30 Deep Tendon Reflexes [WOMSER] Q1H 11/02/17 14:30 Deep Tendon Reflexes [WOMSER] Q1H 11/02/17 15:30 Deep Tendon Reflexes [WOMSER] Q1H 11/02/17 16:30 Deep Tendon Reflexes [WOMSER] Q1H - Assessment Assessment:: POD #2 s/p RLTCS Preeclampsia - Plan Plan:: Patient is doing well overall, BPs remain normal range. Magnesium discontinued yesterday afternoon. Ambulate today, may shower, continue postoperative cares.
[2017-11-03] MEDS: Docusate Sodium 100 MG Cap PO SCH ×2 (09:27→22:47)
[2017-11-03] MEDS: Simethicone 80 MG Tab.Chew PO PRN ×3 (09:32→18:51)
[2017-11-04] MEDS: Acetaminophen/oxyCODONE 325-5 MG Tab PO PRN ×2 (03:03→10:17)
[2017-11-04] MEDS: Simethicone 80 MG Tab.Chew PO PRN ×2 (03:07→08:16)
--- NOTE | 2017-11-04 07:46 | PCM.PNPP ---
- General Info Date of Service: 11/04/17 Functional Status: Reports: Pain Controlled, Tolerating Diet, Ambulating, Urinating - Review of Systems General: Denies: Fever, Weakness Pulmonary: Denies: Shortness of Breath Cardiovascular: Denies: Chest Pain, Palpitations, Lightheadedness Gastrointestinal: Reports: Flatus. Denies: Abdominal Pain, Nausea, Vomiting Genitourinary: Denies: Flank Pain Neurological: Denies: Dizziness, Headache Psychiatric: Reports: No Symptoms - General Info Date of Service: 11/04/17 - Patient Data Vital Signs - Most Recent: Last Vital Signs Temp 36.6 C 11/04/17 04:00 Pulse 112 H 11/04/17 04:00 Resp 18 11/04/17 04:00 BP 115/92 H 11/04/17 04:00 Pulse Ox 94 L 11/04/17 04:00 Weight - Most Recent: 148.778 kg Med Orders - Current: Current Medications Al Hydroxide/Mg Hydroxide (Mag-Al Plus) 30 ml PO Q8H PRN PRN Reason: Heartburn Bisacodyl (Dulcolax) 10 mg RECTAL .ONCE PRN PRN Reason: Constipation Calcium Gluconate (Calcium Gluconate) 1 gm IV ASDIRECTED PRN PRN Reason: respiratory distress Citric Acid/Sodium Citrate (Bicitra Solution) 30 ml PO .ONCE SISI Diphenhydramine HCl (Benadryl) 25 mg IVPUSH Q6H PRN PRN Reason: Itching or Nausea Docusate Sodium (Colace) 100 mg PO BID [facility] Last Admin: 11/03/17 22:47 Dose: 100 mg Emollient Ointment (Lansinoh Hpa) 0 gm TOP ASDIRECTED PRN PRN Reason: Sore Nipples Last Admin: 11/02/17 21:54 Dose: 1 applicful Lactated Ringer's (Ringers, Lactated) 1,000 mls @ 500 mls/hr IV .BOLUS SISI Oxytocin/Sodium Chloride (Oxytocin 30 Unit/500 Ml-Ns) 30 unit in 500 mls @ 250 mls/hr IV TITRATE SISI Magnesium Sulfate (Magnesium Sulfate 40 Gm In Water 1000 Ml) 40 gm in 1,000 mls @ 50 mls/hr IV ASDIRECTED SISI; Protocol Last Admin: 11/01/17 19:35 Dose: 2 gm/hr, 50 mls/hr Lactated Ringer's (Ringers, Lactated) 1,000 mls @ 125 mls/hr IV ASDIRECTED SISI Last Admin: 11/01/17 18:57 Dose: 30 mls/hr Ibuprofen (Motrin) 800 mg PO Q8H PRN PRN Reason: mild pain or fever Last Admin: 11/03/17 23:40 Dose: 800 mg Labetalol HCl (Normodyne) 20 mg IVPUSH Q10M PRN; Protocol PRN Reason: Hypertension Ondansetron HCl (Zofran) 4 mg IV Q4H PRN PRN Reason: Nausea/Vomiting Oxycodone/Acetaminophen (Percocet 325-5 Mg) 1 tab PO Q4H PRN PRN Reason: Pain (moderate 4-6) Oxycodone/Acetaminophen (Percocet 325-5 Mg) 2 tab PO Q4H PRN PRN Reason: Pain (moderate 4-6) Last Admin: 11/04/17 03:03 Dose: 2 tab Simethicone (Simethicone) 80 mg PO Q4H PRN PRN Reason: Gas Last Admin: 11/04/17 03:07 Dose: 80 mg Sodium Chloride (Saline Flush) 10 ml FLUSH ASDIRECTED PRN PRN Reason: Keep Vein Open Sodium Chloride (Saline Flush) 2.5 ml FLUSH ASDIRECTED PRN PRN Reason: Keep Vein Open Discontinued Medications Cefazolin Sodium (Ancef) Confirm Administered Dose 3 gm .ROUTE .STK-MED ONE Stop: 11/01/17 15:58 Diphenhydramine HCl (Benadryl) 25 mg IVPUSH Q4H PRN PRN Reason: Itching Stop: 11/02/17 17:26 Ephedrine Sulfate (Ephedrine Sulfate) Confirm Administered Dose 50 mg .ROUTE .STK-MED ONE Stop: 11/01/17 15:58 Glycopyrrolate (Robinul) Confirm Administered Dose 0.2 mg .ROUTE .STK-MED ONE Stop: 11/01/17 16:34 Cefazolin Sodium 3 mg/ Sodium (Chloride) 100 mls @ 133.333 mls/hr IV ONETIME ONE Stop: 11/01/17 16:18 Last Admin: 11/02/17 00:25 Dose: Not Given Sodium Chloride (Normal Saline) Confirm Administered Dose 20 mls @ as directed .ROUTE .STK-MED ONE Stop: 11/01/17 15:58 Sterile Water (Sterile Water For Injection) Confirm Administered Dose 20 mls @ as directed .ROUTE .STK-MED ONE Stop: 11/01/17 15:59 Magnesium Sulfate 4 gm/ Premix 100 mls @ 300 mls/hr IV .BOLUS ONE Stop: 11/01/17 17:37 Last Admin: 11/01/17 18:47 Dose: 400 mls/hr Ketorolac Tromethamine (Toradol) 30 mg IVPUSH Q6H SISI Stop: 11/02/17 17:31 Last Admin: 11/02/17 17:44 Dose: 30 mg Morphine Sulfate (Duramorph Pf) Confirm Administered Dose 1 mg .ROUTE .STK-MED ONE Stop: 11/01/17 16:04 Nalbuphine HCl (Nubain) 5 mg IVPUSH Q3H PRN PRN Reason: Pruritis Stop: 11/02/17 17:34 Naloxone HCl (Narcan) 0.1 mg IVPUSH ONETIME PRN PRN Reason: Respiratory Depression Stop: 11/02/17 17:26 Octyl Cyanoacrylate (Dermabond Advance) Confirm Administered Dose 2 applic .ROUTE .STK-MED ONE Stop: 11/01/17 16:59 Ondansetron HCl (Zofran) Confirm Administered Dose 4 mg .ROUTE .STK-MED ONE Stop: 11/01/17 15:58 Oxytocin (Pitocin) Confirm Administered Dose 20 unit .ROUTE .STK-MED ONE Stop: 11/01/17 15:58 Phenylephrine HCl (Phenylephrine In Ns 100 Mcg/Ml) Confirm Administered Dose 1 mg .ROUTE .STK-MED ONE Stop: 11/01/17 15:58 - Infant Interaction Disposition, : Warner in Room with Family Feeding: Attempted ; Nursed Fair/Poor Support Person: Significant Other - Recovery Exam Fundal Tone: Firm Fundal Level: At Umbilicus Fundal Placement: Midline Lochia Amount: Scant Lochia Color: Rubra/Red Perineum Description: Intact, Minimal Bruising/Swelling Episiotomy/Laceration: None Bladder Status: Nonpalpable, Voiding Urinary Elimination: Voided - Exam General: Alert, Oriented Lungs: Normal Respiratory Effort Cardiovascular: Regular Rate, Regular Rhythm GI/Abdominal Exam: Normal Bowel Sounds, Soft. No: Guarding, Rigid Extremities: Non-Tender, Pedal Edema (1+). No: Yovany's Sign Skin: Warm, Dry, Intact Wound/Incisions: No Drainage. No: Erythema Neurological: Reflexes Equal Bilateral Psy/Mental Status: Alert, Normal Affect - Problem List & Annotations (1) delivery delivered SNOMED Code(s): 539471090 Code(s): O82 - ENCOUNTER FOR DELIVERY WITHOUT INDICATION Status: Acute Current Visit: Yes (2) Preeclampsia SNOMED Code(s): 103712343 Code(s): O14.90 - UNSPECIFIED PRE-ECLAMPSIA, UNSPECIFIED TRIMESTER Status: Acute Current Visit: Yes - Problem List Review Problem List Initiated/Reviewed/Updated: Yes - My Orders Last 24 Hours: My Active Orders 11/04/17 07:38 Ready for Discharge [RC] PER UNIT ROUTINE - Assessment Assessment:: POD #3 s/p RLTCS Preeclampsia - Plan Plan:: Patient feeling very well--she would like to go home today. Denies headache or visual changes. Allow discharge to home. Follow up at [facility] 1 week for BP check , 2 and 6 weeks. Discharge instructions reviewed. Infection and bleeding warnings reviewed. Am not resuming labetalol at this time as BPs have been normal for the most part. Discharge to home today.
[2017-11-04 07:56] VITALS: BP 145/93
[2017-11-04] MEDS: Docusate Sodium 100 MG Cap PO SCH (08:16)
[2017-11-04] MEDS: Ibuprofen 800 MG Tab PO PRN (08:16)
== END 2017-11-04 11:10 | disposition home or self-care (01) | DRG 540 ==
LOC: MW.OB 14:45 → MW.OBCHECK 14:45 → MW.OB 15:31 → MW.OBCHECK 15:54 → MW.OB 16:27
PROVIDERS: ADMIT Obstetrics & Gynecology; ATTEND Obstetrics & Gynecology
PROC: 10D00Z1 Extraction of Products of Conception, Low, Open Approach (ICD-10-PCS; principal; 2017-11-01)
DX: O14.14 Severe pre-eclampsia complicating childbirth (principal); Z3A.37 37 weeks gestation of pregnancy; Z37.0 Single live birth
CPT/HCPCS: 01961; 36415; 59025; 80053; 82803; 82962; 83735; 85027; 86850; 86900; 86901; A9270-GY; J0690; J1885; J2274; J2405; J2590; J3475; J7120

== ENCOUNTER 2020-10-19 06:34 | Day surgery (SDC) | payer MEDICAID ==
[~2020-10-19 06:34] MED LIST: Lactated Ringers 1,000 ML IV SCH; Sodium Chloride 0.9% 10 ML SDV IV PRN; Sodium Chloride 0.9% 10 ML Syringe FLUSH PRN; Sodium Chloride 0.9% 2.5 ML Syringe FLUSH PRN; ceFAZolin 2 GM in Premix Bag 1 BAG IV ONE
[2020-10-19] MEDS ORDERED: Midazolam 1 MG/ML 2 ML SDV ONE (07:17)
[2020-10-19] MEDS ORDERED: Propofol 200 MG/20 ML SDV ONE (07:17)
[2020-10-19] MEDS ORDERED: fentaNYL 100 MCG/2 ML SDV ONE ×2 (07:17→08:44)
[2020-10-19] MEDS ORDERED: Ondansetron 4 MG/2 ML SDV ONE (07:19)
[2020-10-19] MEDS ORDERED: Rocuronium Bromide 50 MG/5 ML Syringe ONE (07:19)
[2020-10-19] MEDS ORDERED: Ketorolac 30 MG/ML SDV ONE (07:19)
[2020-10-19] MEDS ORDERED: Glycopyrrolate 0.2 MG/ML SDV ONE (07:19)
[2020-10-19] MEDS ORDERED: Lidocaine 2% 5 ML SDV ONE (07:19)
--- NOTE | 2020-10-19 07:20 | PCM.PREANE ---
Preanesthetic Assessment - Anesthesia/Transfusion/Family Hx Anesthesia History: Prior Anesthesia Without Reaction Family History of Anesthesia Reaction: No Transfusion History: No Prior Transfusion(s) - Review of Systems General: No Symptoms Pulmonary: No Symptoms Cardiovascular: No Symptoms Gastrointestinal: No Symptoms Neurological: No Symptoms Other: Reports: None - Physical Assessment NPO Status Date: 10/19/20 NPO Status Time: 00:05 Vital Signs: Last Vital Signs Temp 98.4 F 10/19/20 07:09 Pulse 57 L 10/19/20 07:09 Resp 16 10/19/20 07:09 BP 131/69 10/19/20 07:09 Pulse Ox 97 10/19/20 07:09 Height: 5 ft 5 in Weight: 208 lb ASA Class: 2 Mental Status: Alert & Oriented x3 Airway Class: Mallampati = 2 Dentition: Reports: Normal Dentition ROM/Head Extension: Full Lungs: Clear to Auscultation, Normal Respiratory Effort Cardiovascular: Regular Rate, Regular Rhythm - Lab Values: Laboratory Last Values Urine HCG, Qual NEGATIVE (NEGATIVE) 10/19/20 06:43 - Allergies Allergies/Adverse Reactions: Allergies Allergy/AdvReac Type Severity Reaction Status Date / Time sumatriptan [From Imitrex] Allergy Chest Pain Verified 10/19/20 07:07 - Blood Product(s) Available: None - Anesthesia Plan Pre-Op Medication Ordered: None - Acknowledgements Anesthesia Type Planned: General Anesthesia Pt an Appropriate Candidate for the Planned Anesthesia: Yes Alternatives and Risks of Anesthesia Discussed w Pt/Guardian: Yes Pt/Guardian Understands and Agrees with Anesthesia Plan: Yes Additional Comments: npo after mn anxiety depression verito obesity cardiac palpitations from MALONE drug - resolved exercises no cv sx add prone par no questions PreAnesthesia Questionnaire - Past Health History Medical/Surgical History: Denies Medical/Surgical History HEENT History: Reports: None Other HEENT History: wears glasses Cardiovascular History: Reports: Other (See Below) Other Cardiovascular History: preeclampsia Respiratory History: Reports: None Gastrointestinal History: Reports: None Genitourinary History: Reports: None STUDENT SERVICES DIRECTOR History: Reports: Musculoskeletal History: Reports: None Neurological History: Reports: None Psychiatric History: Reports: None Endocrine/Metabolic History: Reports: Other (See Below) Other Endocrine/Metabolic History: gestational diabetes Hematologic History: Reports: None Immunologic History: Reports: None Oncologic (Cancer) History: Reports: None Dermatologic History: Reports: None - Infectious Disease History Infectious Disease History: Reports: Chicken Pox - Past Surgical History Head Surgeries/Procedures: Reports: None HEENT Surgical History: Reports: None Cardiovascular Surgical History: Reports: None Respiratory Surgical History: Reports: None GI Surgical History: Reports: Bariatric Procedure Other GI Surgeries/Procedures: Lap band in 2010. Female Surgical History: Reports: Section Endocrine Surgical History: Reports: None Neurological Surgical History: Reports: None Musculoskeletal Surgical History: Reports: None Oncologic Surgical History: Reports: None Dermatological Surgical History: Reports: None - SUBSTANCE USE Tobacco Use Status *Q: Never Tobacco User - HOME MEDS Home Medications: Home Meds Amphetamine/Dextroamphetamine [Adderall] 10 mg PO BID 10/12/20 [History] Ascorbic Acid [Vitamin C] 1 tab PO DAILY 10/12/20 [History] Biotin 1 tab.chew CHEW DAILY 10/12/20 [History] Cholecalciferol (Vitamin D3) [Vitamin D3] 2,000 units PO DAILY 10/12/20 [History] Cyanocobalamin (Vitamin B-12) [Vitamin B-12] 2,500 mcg SL DAILY 10/12/20 [History] Elderberry Fruit and Flower [Black Elderberry 575 mg Cap] 1 tab PO DAILY 10/12/20 [History] Magnesium 250 mg PO DAILY 10/12/20 [History] Multivit-Minerals/Folic Acid [Multivitamin Gummies] 1 tab.chew CHEW DAILY 10/12/20 [History] Pantoprazole Sodium [Protonix] 40 mg PO DAILY 10/12/20 [History] Zinc 1 tab PO DAILY 10/12/20 [History] buPROPion HCL [Bupropion HCl Sr] 100 tab PO BID 10/12/20 [History] - CURRENT (IN HOUSE) MEDS Current Meds: Current Medications Lactated Ringer's (Ringers, Lactated) 1,000 mls @ 125 mls/hr IV ASDIRECTED SISI Last Admin: 10/19/20 07:06 Dose: 125 mls/hr Documented by: Sodium Chloride (Sodium Chloride 0.9% 2.5 Ml Syringe) 2.5 ml FLUSH ASDIRECTED PRN PRN Reason: Keep Vein Open Sodium Chloride (Sodium Chloride 0.9% 10 Ml Sdv) 10 ml IV ASDIRECTED PRN PRN Reason: IV Use Sodium Chloride (Sodium Chloride 0.9% 10 Ml Syringe) 10 ml FLUSH ASDIRECTED PRN PRN Reason: Keep Vein Open Discontinued Medications Cefazolin Sodium/Dextrose 2 gm (/ Premix) 50 mls @ 100 mls/hr IV ONETIME ONE Stop: 10/18/20 08:56
[2020-10-19] MEDS ORDERED: Bupivacaine 0.5% 30 ML SDV ONE (07:25)
[2020-10-19] MEDS ORDERED: Lidocaine 1% 20 ML MDV ONE (07:25)
[2020-10-19] MEDS ORDERED: Metoclopramide 10 MG/2 ML SDV ONE (07:40)
[2020-10-19] MEDS ORDERED: Famotidine 20 MG/2 ML SDV ONE (07:41)
[2020-10-19] MEDS ORDERED: Sodium Chloride 0.9% 20 ML ONE (08:02)
[2020-10-19] MEDS ORDERED: ceFAZolin 1 GM Vial ONE (08:02)
[2020-10-19] MEDS ORDERED: Octyl 2-Cyanoacrylate 1 Tube ONE (09:02)
--- NOTE | 2020-10-19 09:59 | PCM.OPNOTE ---
- General Post-Op/Procedure Note Date of Surgery/Procedure: 10/19/20 Operative Procedure(s): Excision lipoma lower back x 3 Findings: Lipoma #1: 7 x 3 x 1.5 cm Lipoma #2: 7.5 x 7.5 x 2 cm Lipoma #3: 9 x 6 x 1 cm Pre Op Diagnosis: Lipomas Post-Op Diagnosis: same Anesthesia Technique: General LMA Primary Surgeon: Pat Eric Fluid Replacement, Intraop: 1,300 EBL in mLs: 10 Condition: Good
[2020-10-19] MEDS ORDERED: Acetaminophen/oxyCODONE 325-5 MG Tab PO ONE (10:55)
--- NOTE | 2020-10-19 11:05 | PCM.POSTAN ---
POST ANESTHESIA ASSESSMENT - MENTAL STATUS Mental Status: Alert (no problems), Oriented - VITAL SIGNS Vital Signs: Last Vital Signs Temp 97.5 F 10/19/20 09:59 Pulse 68 10/19/20 10:20 Resp 14 10/19/20 10:20 BP 96/46 L 10/19/20 10:20 Pulse Ox 99 10/19/20 10:20 - RESPIRATORY Respiratory Status: Respiratory Rate WNL, Airway Patent, O2 Saturation Stable - CARDIOVASCULAR CV Status: Pulse Rate WNL, Blood Pressure Stable - GASTROINTESTINAL GI Status: No Symptoms - POST OP HYDRATION Hydration Status: Adequate & Stable
--- NOTE | 2020-10-19 11:10 | PCM48HPAN ---
Post Anesthesia Note - EVALUATION WITHIN 48HRS OF ANESTHETIC Vital Signs in Normal Range: Yes Patient Participated in Evaluation: Yes Respiratory Function Stable: Yes Airway Patent: Yes Cardiovascular Function Stable: Yes Hydration Status Stable: Yes Pain Control Satisfactory: Yes Nausea and Vomiting Control Satisfactory: Yes Mental Status Recovered: Yes Vital Signs: Last Vital Signs Temp 97.5 F 10/19/20 09:59 Pulse 68 10/19/20 10:20 Resp 14 10/19/20 10:20 BP 96/46 L 10/19/20 10:20 Pulse Ox 99 10/19/20 10:20
[2020-10-19 13:34] VITALS: BP 116/64; PULSE 99
--- NOTE | 2020-10-20 15:48 | OR ---
SURGEON: PAT ERIC MD DATE OF PROCEDURE: 10/19/2020 PREOPERATIVE DIAGNOSIS: Back lipoma x3. POSTOPERATIVE DIAGNOSIS: Back lipoma x3. PROCEDURE PERFORMED: Excision, back lipoma x3. PRIMARY SURGEON: Pat Eric MD ANESTHESIA: General LMA. FLUIDS: 1300 mL crystalloid. ESTIMATED BLOOD LOSS: 10 mL. FINDINGS: 1. Lipoma #1, 7 x 3 x 1.5 cm. No margins associated with case. 2. Lipoma #2, 7.5 x 7.5 x 2 cm. No margins associated with case. 3. Lipoma #3, 9 x 6 x 1 cm. No margins associated with case. COMPLICATIONS: None. INDICATIONS: The patient is a 30-year-old female who presents with symptomatic masses on her lower back. She underwent an ultrasound, which showed no evidence of a lipoma. However, on palpation, it feels like the patient may have some small nodularities in the deep subcutaneous fat, which are likely causing her symptoms. Given their depth and size, I explained to the patient the need to go to the operating room. I explained the procedure, expected perioperative course, and the risks. She verbalized understanding and wishes to proceed. PROCEDURE IN DETAIL: The patient was brought to the endoscopy suite and placed in the left lateral decubitus position. A time-out was completed verifying the patient's name, age, date of , allergies, and procedure to be performed. General LMA anesthesia was induced. The lower back and upper buttocks were prepped and draped in usual standard fashion. The patient and I had marked the sites, where the lipomas were in the preoperative area. I started with her midline mass. This was labeled as lipoma #1. I anesthetized the overlying skin with 0.5% Marcaine plain. Using a 15 blade, I then made an incision in the skin. I dissected down through the layers of the more superficial subcutaneous fat using electrocautery. Once I got to the deep fat, I could feel several nodules which were firm and seemed to be consistent with what the patient and I had felt on clinical exam. I grasped this area of fat with Allis clamps and dissected it free from the surrounding tissue. The fat in this area was very nodular. Using finger dissection, I attempted to create a plane between the nodular fat and the surrounding normal-appearing fat. Once this area had been removed from the surrounding tissues, it was placed on the back table and measured. Lipoma #1 measured 7 x 3 x 1.5 cm in size. I palpated then the area around my dissection and the surrounding fat. No further nodules were noted. I then turned my attention to lipoma #2, which was located on the right lateral lower back. I dissected down in a similar fashion to the deep subcutaneous fat area. I excised any abnormal-appearing fat or fat that felt nodular. The 2nd lipoma measured 7.5 x 7.5 x 2 cm in size. Lipoma #3 was located over the left lateral lower back. I performed my excision in a similar manner to the other excisions. This mass measured 9 x 6 x 1 cm in size. In each area, I carefully palpated to make sure that I had removed any areas of nodular or firmer feeling fat. Hemostasis was achieved in each location with electrocautery. I closed each incision with layers of interrupted 3-0 Vicryl suture in the subcutaneous fat and then I closed the skin in each with a running 4-0 Monocryl suture. Dermabond and sterile dressings were applied. The patient tolerated the procedure well and was taken to PACU in stable condition. All counts were complete and correct at the end of the case. IAM / BEBA /[id number]
== END 2020-10-19 11:55 | disposition home or self-care (01) ==
LOC: MW.SDS 06:34
PROVIDERS: ATTEND Surgery
DX: D17.1 Benign lipomatous neoplasm of skin and subcutaneous tissue of trunk (principal); R73.03 Prediabetes; K21.9 Gastro-esophageal reflux disease without esophagitis; E66.01 Morbid (severe) obesity due to excess calories; Z68.35 Body mass index [BMI] 35.0-35.9, adult; Z88.8 Allergy status to other drugs, medicaments and biological substances; Z79.899 Other long term (current) drug therapy; Z98.890 Other specified postprocedural states
CPT/HCPCS: 11406; 81025; 88305; A9270; J0690; J1885; J2250; J2405; J2704; J2765; J3010; J3490; J7120; 00300

== ENCOUNTER 2020-12-17 01:56 | Emergency (ER) | payer MEDICAID ==
[2020-12-17 02:07] VITALS: BP 153/85; PULSE 83
--- NOTE | 2020-12-17 02:11 | EDM.PDOC ---
ED HPI GENERAL MEDICAL PROBLEM - General Chief Complaint: Respiratory Problem Stated Complaint: SHORTNESS OF BREATH, CHEST PAIN, FACIAL PAIN Time Seen by Provider: 12/17/20 01:59 Source of Information: Reports: Patient History Limitations: Reports: No Limitations - History of Present Illness INITIAL COMMENTS - FREE TEXT/NARRATIVE: Patient is a 30-year-old female who presents today for shortness of breath. Patient says she has sensation that she could not get any air in and she also feels some burning to her chest and her face the burning does not radiate not made better or worse with anything. Patient denies any chest pain or pressure. Patient did report a nonproductive cough. Patient denies any leg swelling fever chills nausea vomiting or other complaints. Headache Pain Score (Numeric/FACES): 6 - Related Data Allergies Allergy/AdvReac Type Severity Reaction Status Date / Time sumatriptan [From Imitrex] Allergy Chest Pain Verified 12/17/20 02:09 Home Meds: Home Meds Amphetamine/Dextroamphetamine [Adderall] 15 mg PO BID 10/12/20 [History] Ascorbic Acid [Vitamin C] 1 tab PO DAILY 10/12/20 [History] Biotin 1 tab.chew CHEW DAILY 10/12/20 [History] Cholecalciferol (Vitamin D3) [Vitamin D3] 2,000 units PO DAILY 10/12/20 [History] Cyanocobalamin (Vitamin B-12) [Vitamin B-12] 2,500 mcg SL DAILY 10/12/20 [History] Elderberry Fruit and Flower [Black Elderberry 575 mg Cap] 1 tab PO DAILY 10/12/20 [History] Magnesium 250 mg PO DAILY 10/12/20 [History] Multivit-Minerals/Folic Acid [Multivitamin Gummies] 1 tab.chew CHEW DAILY 10/12/20 [History] Pantoprazole Sodium [Protonix] 40 mg PO DAILY 10/12/20 [History] Zinc 1 tab PO DAILY 10/12/20 [History] buPROPion HCL [Bupropion HCl Sr] 100 tab PO BID 10/12/20 [History] Past Medical History - Past Health History Medical/Surgical History: Denies Medical/Surgical History HEENT History: Reports: None Other HEENT History: wears glasses Cardiovascular History: Reports: Other (See Below) Other Cardiovascular History: preeclampsia Respiratory History: Reports: None Gastrointestinal History: Reports: None Genitourinary History: Reports: None VP RHEUMATOLOGY History: Reports: Musculoskeletal History: Reports: None Neurological History: Reports: None Psychiatric History: Reports: None Endocrine/Metabolic History: Reports: Other (See Below) Other Endocrine/Metabolic History: gestational diabetes Hematologic History: Reports: None Immunologic History: Reports: None Oncologic (Cancer) History: Reports: None Dermatologic History: Reports: None - Infectious Disease History Infectious Disease History: Reports: Chicken Pox - Past Surgical History Head Surgeries/Procedures: Reports: None HEENT Surgical History: Reports: None Cardiovascular Surgical History: Reports: None Respiratory Surgical History: Reports: None GI Surgical History: Reports: Bariatric Procedure Other GI Surgeries/Procedures: Lap band in 2010. Female Surgical History: Reports: Section Endocrine Surgical History: Reports: None Neurological Surgical History: Reports: None Musculoskeletal Surgical History: Reports: None Oncologic Surgical History: Reports: None Dermatological Surgical History: Reports: None Social & Family History - Family History Family Medical History: No Pertinent Family History HEENT: Reports: Impaired Vision Cardiac: Reports: High Cholesterol, Hypertension, [place] GI: Reports: Other (See Below) Other GI Family History: Father of patient had twisted colon, hernia repair, and colostomy and colostomy removal. OBGYN: Reports: Neurological: Reports: Migraines Psychiatric: Reports: Depression Endocrine/Metabolic: Reports: Diabetes, type II, Obesity/MBI 30+ Oncologic: Reports: Other (See Below) Other Oncologic Family History: Aunt's had cancer, patient doesn't know what kind. - Caffeine Use Caffeine Use: Reports: Coffee, Soda ED ROS GENERAL - Review of Systems Review Of Systems: See Below Constitutional: Reports: No Symptoms HEENT: Reports: No Symptoms Respiratory: Reports: Shortness of Breath Cardiovascular: Reports: No Symptoms Endocrine: Reports: No Symptoms GI/Abdominal: Reports: No Symptoms : Reports: No Symptoms Musculoskeletal: Reports: No Symptoms Skin: Reports: No Symptoms Neurological: Reports: No Symptoms Psychiatric: Reports: No Symptoms Hematologic/Lymphatic: Reports: No Symptoms Immunologic: Reports: No Symptoms ED EXAM, GENERAL - Physical Exam Exam: See Below Exam Limited By: No Limitations General Appearance: Alert, WD/WN, No Apparent Distress Eye Exam: Bilateral Eye: EOMI, PERRL Respiratory/Chest: No Respiratory Distress, Lungs Clear, Normal Breath Sounds Cardiovascular: Normal Peripheral Pulses, Regular Rate, Rhythm GI/Abdominal: Normal Bowel Sounds, Soft, Non-Tender Neurological: Alert, Oriented, Normal Cognition, Normal Gait #1 Interpretation EKG Date: 12/17/20 Time: 01:57 Rhythm: NSR Rate (Beats/Min): 73 ST-T: Normal Course - Vital Signs Last Recorded V/S: Last Vital Signs Temp 97.0 F 12/17/20 02:06 Pulse 83 12/17/20 02:06 Resp 20 12/17/20 02:06 BP 153/85 H 12/17/20 02:06 Pulse Ox 100 12/17/20 02:06 - Orders/Labs/Meds Orders: Active Orders 24 hr Category Date Time Status EKG Documentation Completion [RC] STAT Care 12/17/20 02:06 Active Labs: Laboratory Tests 12/17/20 12/17/20 12/17/20 Range/Units 02:02 02:02 02:20 WBC 10.83 (4.0-11.0) K/uL RBC 4.25 L (4.30-5.90) M/uL Hgb 13.4 (12.0-16.0) g/dL Hct 40.0 (36.0-46.0) % MCV 94.1 (80.0-98.0) fL MCH 31.5 (27.0-32.0) pg MCHC 33.5 (31.0-37.0) g/dL RDW Std Deviation 49.4 (28.0-62.0) fl RDW Coeff of Sara 15 (11.0-15.0) % Plt Count 221 (150-400) K/uL MPV 12.40 H (7.40-12.00) fL Neut % (Auto) 55.5 (48.0-80.0) % Lymph % (Auto) 33.3 (16.0-40.0) % [place] % (Auto) 8.2 (0.0-15.0) % Eos % (Auto) 2.6 (0.0-7.0) % Baso % (Auto) 0.4 (0.0-1.5) % Neut # (Auto) 6.0 H (1.4-5.7) K/uL Lymph # (Auto) 3.6 H (0.6-2.4) K/uL [place] # (Auto) 0.9 H (0.0-0.8) K/uL Eos # (Auto) 0.3 (0.0-0.7) K/uL Baso # (Auto) 0.0 (0.0-0.1) K/uL Nucleated RBC % 0.0 /100WBC Nucleated RBCs # 0 K/uL Sodium 141 (136-145) mmol/L Potassium 3.8 (3.5-5.1) mmol/L Chloride 105 (98-107) mmol/L Carbon Dioxide 28.2 (21.0-32.0) mmol/L BUN 21 H (7.0-18.0) mg/dL Creatinine 0.8 (0.6-1.0) mg/dL Est Cr Clr Drug Dosing 90.84 mL/min Estimated GFR (MDRD) > 60.0 ml/min Glucose 94 (74-106) mg/dL Calcium 8.6 (8.5-10.1) mg/dL Troponin I < 0.050 (0.000-0.056) ng/mL Urine HCG, Qual NEGATIVE (NEGATIVE) - Re-Assessments/Exams Free Text/Narrative Re-Assessment/Exam: 12/17/20 02:56 Patient x-ray is clear signs no signs of pneumonia. Patient continues with already present on room air her hemoglobin is normal with nausea anemia in the past. Patient will be discharged to follow-up primary care physician. Departure - Departure Time of Disposition: 02:57 Disposition: Home, Self-Care 01 Condition: Good Clinical Impression: SOB (shortness of breath) - Discharge Information *PRESCRIPTION DRUG MONITORING PROGRAM REVIEWED*: Not Applicable *COPY OF PRESCRIPTION DRUG MONITORING REPORT IN PATIENT DHEERAJ: Not Applicable Instructions: Shortness of Breath, Adult, [id number] Forms: ED Department Discharge Additional Instructions: The following information is given to patients seen in the emergency department who are being discharged to home. This information is to outline your options for follow-up care. We provide all patients seen in our emergency department with a follow-up referral. The need for follow-up, as well as the timing and circumstances, are variable depending upon the specifics of your emergency department visit. If you don't have a primary care physician on staff, we will provide you with a referral. We always advise you to contact your personal physician following an emergency department visit to inform them of the circumstance of the visit and for follow-up with them and/or the need for any referrals to a consulting specialist. The emergency department will also refer you to a specialist when appropriate. This referral assures that you have the opportunity for follow-up care with a specialist. All of these measure are taken in an effort to provide you with optimal care, which includes your follow-up. Under all circumstances we always encourage you to contact your private physician who remains a resource for coordinating your care. When calling for follow-up care, please make the office aware that this follow-up is from your recent emergency room visit. If for any reason you are refused follow-up, please contact the [facility] Emergency Department at and asked to speak to the emergency department charge nurse. Please follow up with your primary care physician. If you do not have a primary care physician, see below: [facility] [address] [place] [id number] [facility] [address] [place] [address] You were seen today for shortness of breath. We did x-rays that was clear your oxygen level was 100% here. We do not have any concerning causes for your shortness of breath today this may be due to a viral illness. We recommend you continue to take [id number] medication as needed and follow-up to primary care physician. If you have any other concerning signs or symptoms please return to the ED. Sepsis Event Note (ED) - Focused Exam Vital Signs: Vital Signs Temp Pulse Resp BP Pulse Ox 12/17/20 02:06 97.0 F 83 20 153/85 H 100 - My Orders Last 24 Hours: My Active Orders 12/17/20 02:06 EKG Documentation Completion [RC] STAT - Assessment/Plan Last 24 Hours: My Active Orders 12/17/20 02:06 EKG Documentation Completion [RC] STAT Plan: Patient is a 30-year-old female who presents today for shortness of breath and a burning sensation to her face and chest. Patient has no noticeable rash on exam. Patient lungs are clear and 700% on room air. Will obtain x-ray labs and reassess.
[2020-12-17 02:29] LABS: BLOOD UREA NITROGEN,BUN 21 mg/dL (7.0-18.0); CARBON DIOXIDE,CO2 28.2 mmol/L (21.0-32.0); CHLORIDE,CL 105 mmol/L (98-107); GLUCOSE RANDOM 94 mg/dL (74-106); POTASSIUM,K 3.8 mmol/L (3.5-5.1); SODIUM,NA 141 mmol/L (136-145)
--- NOTE | 2020-12-17 02:51 | CR ---
For Patients: As a result of the Cures Act, medical imaging exams and procedure reports are released immediately into your electronic medical record. You may view this report before your referring provider. If you have questions, please contact your health care provider. HISTORY: Shortness of breath. TECHNIQUE: One view of the chest. COMPARISON: No prior. FINDINGS: Cardiac size and pulmonary vasculature are within normal limits. There is no acute lung infiltrate or pulmonary edema. No pneumothorax or pleural effusion. No acute bony abnormality. IMPRESSION: No acute disease. Dictated by Bruce Jones MD @ 12/17/2020 2:50:[address] Bruce Jones @ Dec 17 2020 2:50AM
== END 2020-12-17 03:07 | disposition home or self-care (01) ==
LOC: MW.ED 01:56
DX: R06.02 Shortness of breath (principal)
CPT/HCPCS: 36415; 71045; 71045-26; 80048; 81025; 84484; 85025; 93005; 93010; 99283; 99285-25

== ENCOUNTER 2024-09-29 20:10 | Emergency (ER) | payer MEDICAID ==
[2024-09-29] MEDS: Ibuprofen 800 MG Tab PO ONE (23:33)
[2024-09-29] MEDS: Acetaminophen/HYDROcodone 325-10 MG Tab PO ONE (23:33)
[2024-09-29 23:47] VITALS: BP 128/78; PULSE 57
== END 2024-09-29 23:46 | disposition home or self-care (01) ==
LOC: MW.ED 20:10
DX: S63.501A Unspecified sprain of right wrist, initial encounter (principal); Z88.8 Allergy status to other drugs, medicaments and biological substances; Z79.899 Other long term (current) drug therapy; V00.111A Fall from in-line roller-skates, initial encounter; Y93.51 Activity, roller skating (inline) and skateboarding
CPT/HCPCS: 73100; 99283; A9270